=== PATIENT | female | born 1970 | race Caucasian/White ===

== ENCOUNTER 2020-08-30 07:25 | Outpatient (REF) | payer OTHER, SELFPAY ==
--- NOTE | 2020-08-30 07:29 | MM_ITS ---
EXAMINATION: MM SCREENING DIGITAL BREAST TOMOSYNTHESIS, BILATERAL CLINICAL INFORMATION: Screening. Asymptomatic. The lifetime risk of breast cancer based on the Tyrer-Cuzick Model is 10%. COMPARISON: Mammography: 08/28/2019, 08/26/2018 TECHNIQUE: Digital breast tomosynthesis is performed in both the craniocaudal and mediolateral oblique views along with computer-aided detection (CAD). Synthesized 2D images are generated from the tomosynthesis. FINDINGS: There are scattered areas of fibroglandular density (ACR BI-RADS breast composition Category b). There are no significant masses, abnormal calcifications, or other abnormalities. Parenchymal pattern is similar to prior exams. MM/MM tomosynthesis screening BI IMPRESSION: No mammographic evidence of malignancy. ASSESSMENT: BI-RADS 1: Negative RECOMMENDATION: Routine annual mammography screening. This patient's information was entered into a reminder system with a target due date for their next mammogram.
== END 2020-08-30 07:26 | disposition home or self-care (01) ==
LOC: HO.MAMMO 07:25
PROVIDERS: PCP Internal Medicine; Visit Provider Internal Medicine
DX: Z12.31 Encounter for screening mammogram for malignant neoplasm of breast (principal)
CPT/HCPCS: 77063; 77067

== ENCOUNTER 2020-10-23 07:19 | Outpatient (REF) | payer OTHER, SELFPAY ==
[2020-10-23 07:56] LABS: COVID-19 Test Negative (Negative)
== END 2020-10-23 07:20 | disposition home or self-care (01) ==
LOC: HO.EMPCOV 07:19
PROVIDERS: Visit Provider Internal Medicine
DX: Z20.822 Contact with and (suspected) exposure to COVID-19 (principal)
CPT/HCPCS: 36415; 87635; C9803

== ENCOUNTER 2020-10-25 14:43 | Outpatient (REF) | payer OTHER, SELFPAY ==
[2020-10-25 15:17] LABS: COVID-19 Test Negative (Negative)
== END 2020-10-25 14:44 | disposition home or self-care (01) ==
LOC: HO.EMPCOV 14:43
PROVIDERS: Visit Provider Internal Medicine
DX: Z20.822 Contact with and (suspected) exposure to COVID-19 (principal)
CPT/HCPCS: 36415; 87635; C9803

== ENCOUNTER → 2021-05-24 12:08 | Outpatient (BNVA) | payer OTHER, SELFPAY | DX: Z20.822 Contact with and (suspected) exposure to COVID-19 (principal); Z13.89 Encounter for screening for other disorder | CPT/HCPCS: 36415; 87635; C9803 ==

== ENCOUNTER 2021-10-27 10:38 | Outpatient (REF) | payer OTHER, SELFPAY ==
--- NOTE | ~2021-10-27 | MM_ITS ---
EXAMINATION: MM SCREENING DIGITAL BREAST TOMOSYNTHESIS, BILATERAL CLINICAL INFORMATION: Screening. Asymptomatic. The lifetime risk of breast cancer based on the Tyrer-Cuzick Model is 10%. COMPARISON: Mammography: 08/30/2020, 08/28/2019, 08/26/2018 TECHNIQUE: Digital breast tomosynthesis is performed in both the craniocaudal and mediolateral oblique views along with computer-aided detection (CAD). Synthesized 2D images are generated from the tomosynthesis. FINDINGS: There are scattered areas of fibroglandular density (ACR BI-RADS breast composition Category b). There are no significant masses, abnormal calcifications, or other abnormalities. Parenchymal pattern is similar to prior studies. There is no developing density or architectural abnormality. The axilla and skin contours are unremarkable. No significant changes. MM/MM tomosynthesis screening BI IMPRESSION: No mammographic evidence of malignancy. ASSESSMENT: BI-RADS 1: Negative RECOMMENDATION: Routine annual mammography screening. This patient's information was entered into a reminder system with a target due date for their next mammogram.
== END 2021-10-27 10:39 | disposition home or self-care (01) ==
LOC: HO.MAMMO 10:38
PROVIDERS: PCP Internal Medicine; Visit Provider Internal Medicine
DX: Z12.31 Encounter for screening mammogram for malignant neoplasm of breast (principal)
CPT/HCPCS: 77063; 77067

== ENCOUNTER 2022-07-24 11:43 | Outpatient (REF) | payer OTHER, SELFPAY ==
[2022-07-24 14:55] LABS: Syphilis Screen Nonreactive (Nonreactive)
[2022-07-25 09:51] LABS: HBsAGNum1 0.27 S/CO (0.00-0.99); HIV AB/AG Nonreactive (Nonreactive); HIV Num 1 0.04 S/CO (0.00-0.99); Hepatitis B Surface Antigen Negative (Negative); ~HepC Num1 0.07 S/CO (0.00-0.79); ~Hepatitis C Antibody Nonreactive (Nonreactive)
== END 2022-07-24 11:44 | disposition home or self-care (01) ==
LOC: HO.HMGCLDS 11:43
PROVIDERS: PCP Internal Medicine; Visit Provider Nurse Practitioner Adult Health
DX: Z11.4 Encounter for screening for human immunodeficiency virus [HIV] (principal); Z11.3 Encounter for screening for infections with a predominantly sexual mode of transmission
CPT/HCPCS: 36415; 86780; 86803; 87340; 87389

== ENCOUNTER → 2022-08-07 13:26 | Outpatient (BNVA) | payer OTHER, SELFPAY | PROVIDERS: PCP Internal Medicine; Visit Provider Physician Assistant | DX: Z13.89 Encounter for screening for other disorder (principal) | CPT/HCPCS: 99203 ==

== ENCOUNTER 2022-08-27 15:30 | Outpatient (RCR) | payer OTHER, SELFPAY ==
--- NOTE | 2022-08-09 12:15 | MHC.OT.EP ---
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 Thank you once again for your referral.
--- NOTE | 2022-10-18 11:29 | MHC.OT.DC ---
[address] [phone] F: [phone] Occupational Therapy Discharge Note Provider: Janie Herrera Diagnosis: Right lateral epicondylitis with radicular sx Date of Surgery: Date of Evaluation: 08/09/22 Date of Discharge: 10/18/22 Treatments to Date: 3 Cancellations to Date: 1 No Shows to Date: Discharge Status: Improved Function Independent with HEP Discharge Summary: Pain 3/10 Pt indep with ther ex and elbow protection techniques for self management of lateral epicondylitis Some improvement in activity tolerance with use of standing desk. Needs recommended modifications for seated work. Electronically Signed By: Vanessa Salinas OT CHT CLT Reviewed/agree with student documentation: N/A Therapist: Please Sign and return to therapist, thank you for your referral.
== END 2022-10-18 11:30 | disposition home or self-care (01) ==
LOC: HO.OT 15:30
PROVIDERS: PCP Internal Medicine; Visit Provider Physician Assistant
DX: M77.11 Lateral epicondylitis, right elbow (principal)
CPT/HCPCS: 97033; 97110; 97140; 97166

== ENCOUNTER → 2022-08-28 15:10 | Outpatient (BNVA) | payer OTHER, SELFPAY | PROVIDERS: PCP Internal Medicine; Visit Provider Physician Assistant | DX: Z13.89 Encounter for screening for other disorder (principal) | CPT/HCPCS: 73080; 99215 ==

== ENCOUNTER 2022-10-03 08:37 | Outpatient (REF) | payer OTHER, SELFPAY ==
--- NOTE | 2022-10-03 08:45 | EMG_ITS ---
FINDINGS: Right median and ulnar motor and sensory studies were performed. Right medial and lateral antecubital brachial sensory studies were performed. Right radial sensory study was performed and needle examination was performed on paraspinal and multiple arm muscles. IMPRESSION: This study was unremarkable and did not reveal any sign of ulnar neuropathy or entrapment neuropathy in the hand or arm, plexopathy, or radiculopathy. MD MERLIN Chauhan/GIAN / [id number]
== END 2022-10-03 08:38 | disposition home or self-care (01) ==
LOC: HO.NEURO 08:37
PROVIDERS: PCP Internal Medicine; Visit Provider Physician Assistant
DX: M54.10 Radiculopathy, site unspecified (principal); M62.81 Muscle weakness (generalized)
CPT/HCPCS: 95886; 95910; 99202

== ENCOUNTER → 2022-10-10 14:23 | Outpatient (BNVA) | payer OTHER, SELFPAY | PROVIDERS: PCP Internal Medicine; Visit Provider Physician Assistant | DX: M77.11 Lateral epicondylitis, right elbow (principal) | CPT/HCPCS: 20551; J1020; J1040 ==

== ENCOUNTER → 2022-10-16 11:57 | Outpatient (BNVA) | payer OTHER, SELFPAY | PROVIDERS: PCP Internal Medicine; Visit Provider Physician Assistant | DX: Z13.89 Encounter for screening for other disorder (principal) | CPT/HCPCS: 99213 ==

== ENCOUNTER 2022-11-16 07:34 | Outpatient (REF) | payer OTHER, SELFPAY ==
--- NOTE | ~2022-11-16 | MM_ITS ---
EXAMINATION: MM SCREENING DIGITAL BREAST TOMOSYNTHESIS, BILATERAL CLINICAL INFORMATION: Screening. Asymptomatic. The lifetime risk of breast cancer based on the Tyrer-Cuzick Model is 9.5%. COMPARISON: Mammography: October 27, 2021 and studies dating back to May 20, 2016 TECHNIQUE: Digital breast tomosynthesis is performed in both the craniocaudal and mediolateral oblique views along with computer-aided detection (CAD). Synthesized 2D images are generated from the tomosynthesis. FINDINGS: The breasts are heterogeneously dense, which may obscure small masses (ACR BI-RADS breast composition Category c). There are no significant masses, abnormal calcifications, or other abnormalities. MM/MM tomosynthesis screening BI IMPRESSION: No significant changes from prior exam. ASSESSMENT: BI-RADS 1: Negative RECOMMENDATION: Routine annual mammography screening. This patient's information was entered into a reminder system with a target due date for their next mammogram.
== END 2022-11-16 07:35 | disposition home or self-care (01) ==
LOC: HO.MAMMO 07:34
PROVIDERS: PCP Internal Medicine; Visit Provider Internal Medicine
DX: Z12.31 Encounter for screening mammogram for malignant neoplasm of breast (principal)
CPT/HCPCS: 77063; 77067

== ENCOUNTER 2023-12-16 09:06 | Outpatient (REF) | payer OTHER, SELFPAY ==
[2023-12-16 12:16] LABS: HBsAGNum1 0.32 S/CO (0.00-0.99); HIV AB/AG Nonreactive (Nonreactive); HIV Num 1 0.05 S/CO (0.00-0.99); Hepatitis B Surface Antigen Negative (Negative)
[2023-12-16 12:18] LABS: Syphilis Screen Nonreactive (Nonreactive)
[2023-12-17 15:43] LABS: Follicle Stimulating Hormone 84.2 mIU/mL
[2023-12-23 11:58] LABS: C. trachomatis RNA TMA NOT DETECTED (NOT DETECTED); N. gonorrhoeae RNA TMA NOT DETECTED (NOT DETECTED)
[2023-12-23 22:08] LABS: HPV mRNA E6/E7 Detected (Not Detected)
== END 2023-12-16 09:07 | disposition home or self-care (01) ==
LOC: HO.HMGCLDS 09:06
PROVIDERS: PCP Internal Medicine; Visit Provider Nurse Practitioner Adult Health
DX: Z12.4 Encounter for screening for malignant neoplasm of cervix (principal); Z11.51 Encounter for screening for human papillomavirus (HPV); Z11.4 Encounter for screening for human immunodeficiency virus [HIV]; N91.2 Amenorrhea, unspecified; Z20.2 Contact with and (suspected) exposure to infections with a predominantly sexual mode of transmission
CPT/HCPCS: 36415; 83001; 86780; 87340; 87389; 87491; 87591; 87624; 88142

== ENCOUNTER 2024-01-24 08:19 | Outpatient (REF) | payer OTHER, SELFPAY | END 2024-01-24 08:20 | disposition home or self-care (01) | LOC: HO.MAMMO 08:19 | PROVIDERS: PCP Internal Medicine; Visit Provider Internal Medicine | DX: Z12.31 Encounter for screening mammogram for malignant neoplasm of breast (principal) | CPT/HCPCS: 77063; 77067 ==

== ENCOUNTER → 2024-01-24 08:30 | Outpatient (BNV) | payer OTHER, SELFPAY | PROVIDERS: PCP Internal Medicine; Visit Provider Radiology Diagnostic Radiology | DX: Z12.31 Encounter for screening mammogram for malignant neoplasm of breast (principal) | CPT/HCPCS: 77063; 77067 ==

== ENCOUNTER 2024-03-05 08:01 | Outpatient (AMB) | payer OTHER, SELFPAY ==
[2024-03-05 08:04] VITALS: BP 122/76; PULSE 76; TEMP 37.1; O2SAT 98
--- NOTE | 2024-03-05 08:04 | AM.OFFWIN_ITS ---
Intake Vital Signs 3 03/05/24 08:04 Height 5 ft 4 in BP 122/76 Blood Pressure Location Rt brachial Position Sitting Pulse 76 Pulse Source Pulse Oximeter Temp 98.8 F Temp Source Temporal Artery Scan Pulse Oximetry (%) 98 Intake Visit Reasons: EP Back strain/pain Intake Note: pt is here for back strain with pain Patient Tobacco Use Status: Never used Tobacco Allergies No Known Allergies Allergy (Verified 03/05/24 08:05) Medication List - Last Reconciled 03/05/24 by Marisol Howard MD levonorgestrel (Liletta) intrauterine Do you need a note to return to daycare/school/sports/work: Yes HPI EP Back strain/pain 2 HPI0 Details Patient is a 53-year-old female came in today to be evaluated for lower back pain Which started yesterday. Patient says that prior to that she has been lifting heavy boxes as she is helping her bothered move On examination her pain is located around right sacroiliac joint She is also having spasms of back muscles with movement I am treating her with diclofenac 75 mg up to b.i.d. with food And cyclobenzaprine 10 mg up to 3 times a day Patient is aware that cyclobenzaprine is going to make her very tired It is preferable that she take it at night. Follow-up with PCP [facility] Medical History Elevated LDL cholesterol level Social History Housing: Condominium Patient Tobacco Use Status: Never used Tobacco e-Cigarette/Vaping Use: Never Used service: No Current occupational status: employed Cognitive needs: No Hearing needs: No Vision needs: Yes Review of Systems Const All systems reviewed & are unremarkable except as noted in HPI and below Physical Exam Vital Signs: Last Vital Signs Temp 98.8 F 03/05/24 08:04 Pulse 76 03/05/24 08:04 BP 122/76 03/05/24 08:04 Pulse Ox 98 03/05/24 08:04 Const General: no acute distress Orientation/consciousness: patient oriented x3 Eyes General: appearance normal, both eyes and all related structures Resp Effort & Inspection: normal respiratory effort and able to speak in complete sentences Back/Spine/Pelvis Back/spine/pelvis image: 2 1. Site of pain, no pain with spine percussion, straight leg negative bilateral Motor sensory intact Neuro General: patient oriented x3 Psych Mental Status: mental status grossly normal Assessment & Plan Assessment & Plan (1) Sacroiliac joint pain: Code(s): M53.3 - Sacrococcygeal disorders, not elsewhere classified Plan Patient is a 53-year-old female came in today to be evaluated for lower back pain Which started yesterday. Patient says that prior to that she has been lifting heavy boxes as she is helping her bothered move On examination her pain is located around right sacroiliac joint She is also having spasms of back muscles with movement I am treating her with diclofenac 75 mg up to b.i.d. with food And cyclobenzaprine 10 mg up to 3 times a day Patient is aware that cyclobenzaprine is going to make her very tired It is preferable that she take it at night. Follow-up with PCP Medications: New 2 cyclobenzaprine 10 mg PO TID 21 tabs 0RF 7 days diclofenac sodium 75 mg PO BID 20 tabs 0RF pain 10 days Coding Level of Care Code Est Pt Level 3 (65441) Diagnoses Sacroiliac joint pain M53.3
== END 2024-03-05 09:05 | disposition home or self-care (01) ==
PROVIDERS: PCP Internal Medicine; Visit Provider Internal Medicine
DX: M53.3 Sacrococcygeal disorders, not elsewhere classified (principal)
CPT/HCPCS: 99213

== ENCOUNTER 2024-09-30 10:03 | Outpatient (AMB) | payer OTHER, SELFPAY ==
--- NOTE | 2024-09-30 10:21 | AM.OFFWIN_ITS ---
Intake Vital Signs 09/30/24 10:23 Weight 160 lb BP 122/80 Blood Pressure Location Lt brachial Position Sitting Pulse 63 Pulse Source Pulse Oximeter Temp 98.2 F Temp Source Oral Pulse Oximetry (%) 99 Oxygen Delivery Method Room Air Intake Visit Reasons: EP-rt ear infection Intake Note: Patient here for right ear pain that has been present for about 5 days. Patient Tobacco Use Status: Never used Tobacco Allergies No Known Allergies Allergy (Verified 09/30/24 10:23) Do you need a note to return to daycare/school/sports/work: No HPI HPI Comments History of Present Illness Details History The patient is a 54-year-old female presenting with complaints pertaining to her right ear. The issue began following a recent trip to [place], where she believes she developed an ear infection. The symptomatology presented atypically, as she did not have a preceding upper respiratory tract infection, which is typically associated with her past occurrences of ear infections. She has experienced a sensation of fluid accumulation and a blockage in the right ear, though she reports no changes in hearing acuity beyond this sensation. The patient denies any fever or systemic symptoms. Previous attempts to visit a walk-in clinic in [place] were impeded due to insurance verification issues, and thus she abstained from treatment. Symptomatic management attempted included the use of topical analgesic ear drops, which were ineffective, leading her to abstain from their continued use. She denies any history of diabetes or pain on the bone behind her ear. The patient returned from her trip the previous night and sought immediate evaluation for her continued symptoms. Physical Exam General: Cooperative, healthy appearing, comfortable and no acute distress Orientation/consciousness: Patient oriented x3 Limitations: No limitations Head: Normal to inspection Ears: Normal external ears bilaterally. Right TM purulent effusion and erythema. Left TM has cerumen blocking it. Nose: Normal external nose present, Normal nares present and No nasal discharge present Face and sinus: Normal facial exam and Yes sinuses nontender Mouth: Normal oral and palatal mucosa present and moist mucous membranes Throat: Yes tonsils normal, Yes uvula midline. Posterior oropharynx erythema Eyes: Appearance normal, both eyes and all related structures Neck: Normal visual inspection Respiratory: Normal respiratory effort, able to speak in complete sentences Skin: No rashes or lesions noted Neuro: Patient oriented x3 Extremities: Normal to inspection and Yes no clubbing, cyanosis or edema [facility] Medical History Elevated LDL cholesterol level Social History Housing: Condominium Patient Tobacco Use Status: Never used Tobacco e-Cigarette/Vaping Use: Never Used service: No Current occupational status: employed Cognitive needs: No Hearing needs: No Vision needs: Yes Review of Systems Const All systems reviewed & are unremarkable except as noted in HPI and below Physical Exam Vital Signs: Last Vital Signs Temp 98.2 F 09/30/24 10:23 Pulse 63 09/30/24 10:23 BP 122/80 09/30/24 10:23 Pulse Ox 99 09/30/24 10:23 Oxygen Delivery Method Room Air 09/30/24 10:23 Assessment & Plan Assessment & Plan (1) Otitis media: Code(s): H66.90 - Otitis media, unspecified, unspecified ear Qualifiers: Otitis media type: suppurative Chronicity: acute Laterality: right Recurrence: non-recurrent Spontaneous tympanic membrane rupture: without spontaneous rupture Qualified Code(s): H66.001 - Acute suppurative otitis media without spontaneous rupture of ear drum, right ear Plan: - Initiate amoxicillin therapy for the treatment of right acute otitis media, prescribed to be taken every 12 hours for 7 days. The patient is instructed that if symptoms significantly improve, she may discontinue after 5 days. - Prescription sent electronically to the patient's pharmacy of choice, [facility]. - Educate the patient about the importance of completing a course of antibiotics and monitoring for any adverse reactions or persistence of symptoms. - Advised the patient to seek further medical evaluation if symptoms do not improve with initial therapy or worsen. Patient was informed and verbally consented to the use of an ambient scribe for clinic note documentation during this visit Medications: New amoxicillin 875 mg PO Q12H 14 tabs 0RF Coding Level of Care Code Est Pt Level 3 (13170) Diagnoses Non-recurrent acute suppurative otitis media of right ear without spontaneous rupture of tympanic membrane H66.001 Otitis media type: suppurative Chronicity: acute Laterality: right Recurrence: non-recurrent Spontaneous tympanic membrane rupture: without spontaneous rupture
[2024-09-30 10:23] VITALS: BP 122/80; PULSE 63; TEMP 36.8; O2SAT 99
== END 2024-09-30 10:44 | disposition home or self-care (01) ==
PROVIDERS: PCP Internal Medicine; Visit Provider Physician Assistant
DX: H66.001 Acute suppurative otitis media without spontaneous rupture of ear drum, right ear (principal)

== ENCOUNTER → 2024-09-30 10:03 | Outpatient (BNVA) | payer OTHER, SELFPAY | PROVIDERS: PCP Internal Medicine; Visit Provider Physician Assistant ==

== ENCOUNTER 2024-11-25 08:32 | Outpatient (AMB) | payer OTHER, SELFPAY ==
--- OUTSIDE RECORDS SUMMARY | 2024-11-25 08:37 | XMS_ITS | Patient Health Record ---
[facility] Address [address] [place] [address] Care Team Providers Care Roller Checker Name Role Phone Mini PARIS, Sarah Wiley Primary Care Provider Un available BlackBeth Unavailable [phone] Allergies No Known Allergies Reason For Referral No Information Medications Medication SIG (Take, Route, Frequency, Duration) Notes Start Date End Date Status Amy Active Social History Tobacco Use: Social History Observation Description Date Details (start date - stop date) Never Smoker NA - NA Tobacco use other than smoking: Question Answer Notes Are you an other tobacco user? No Tobacco Control (Standard) Question Answer Notes Tobacco use: Nonsmoker Additional Findings: Tobacco non-user Current no nsmoker AUDIT-C (Standard) Question Answer Notes Did you have a drink contain ing alcohol in the past year? Yes How often did you have six o r more drinks on one occasion in the past year? Declined to specify (0 point) How many drinks did you have on a typical day when you were drinking in the past year? Declined to specify (0 point) How often did you have a dri nk containing alcohol in the past year? Declined to specify (0 point) Points 0 Interpretation Negative Problems Problem Type SNOMED Code ICD Code Onset Dates Problem Status W/U Status Risk Notes Problem Acquired hammer toe of right foot (9416437619612490 ) Other hammer toe(s) (acquired), right foot (M20.41) Active confirmed Problem Acquired hammer toe of left foot (0309489366847782 ) Other hammer toe(s) (acquired), left foot (M20.42) Active confirmed Problem Acquired right hallux valgus (845149584074177) Hallux valgus of right foot (M20.11) Active confirmed Problem Acquired left hallux valgus (374625105231659) Hallux valgus of left foot (M20.12) Active confirmed Problem Acquired hallux valgus (62227974) Acquired hallux interphalangeus of left foot (M20.12) Active confirmed Problem Acquired hallux valgus (63490191) 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) Active confirmed Problem Localized, primary osteoarthritis of the ankle and/or foot (795658614) Arthritis of joint of lesser toe, left (M19.072) Active confirmed Problem Localized, primary osteoarthritis of the ankle and/or foot (366621289) Arthritis of joint of lesser toe, right (M19.071) Active confirmed Vital Signs Blood pressure diastolic 70 mm Hg 11/04/2024 Height 5ft5in in 11/04/2024 Blood pressure systolic 120 mm Hg 11/04/2024 Weight 165 lbs 11/04/2024 BMI 27.45 kg/m2 11/04/2024 Encounters Encounter Location Date Provider [facility] [address] 11/04/2024 Bethmansoor Batista Pain in right toe(s) M79.674 ; Acquired hallux interphalangeus of right foot M20.11 ; Other hammer toe(s) (acquired), right foot M20.41 ; Pain in left toe(s) M79.675 ; Other hammer toe(s) (acquired), left foot M20.42 ; Acquired hallux interphalangeus of left foot M20.12 ; Keratosis L57.0 ; Bunion of left foot M21.612 and Bunion, right M21.[address] [facility] [address] 11/04/2024 Beth Batista Assessments Encounter Date Diagnosis (ICD Code) Assessment Notes Treatment Notes Treatment Clinical Notes Section Notes 11/04/2024 Pain in right toe(s) (ICD-10 - M79.674) 11/04/2024 Acquired hallux interphalangeus of right foot (ICD-10 - M20.11) 11/04/2024 Other hammer toe(s) (acquired), right foot (ICD-10 - M20.41) 11/04/2024 Pain in left toe(s) (ICD-10 - M79.675) 11/04/2024 Other hammer toe(s) (acquired), left foot (ICD-10 - M20.42) 11/04/2024 Acquired hallux interphalangeus of left foot (ICD-10 - M20.12) 11/04/2024 Keratosis (ICD-10 - L57.0) 11/04/2024 Bunion of left foot (ICD-10 - M21.612) 11/04/2024 Bunion, right (ICD-10 - M21.611) Plan Of Treatment No Information Insurance Providers Payer Name Payer Address Payer Phone Subscriber Number Group Number Insured Name Patient Relationship to Insured Coverage Start Date Coverage End Date [employer] Benefits [address] [address] [place] [id number] Hilaria Sherwood Self - patient is the insured Medical (General) History Medical History History ICD Code Back pain Knee Pain covid-19 Headaches/Migraines Chicken pox Surgical History Surgery Date(Month/Year) Meniscus repair 2x 1996, 2016
--- OUTSIDE RECORDS SUMMARY | 2024-11-25 08:38 | XMS_ITS ---
Author Organization [facility] Address [address] [place] [address] Care Team Providers Care Disk And Tape Machine Tender Name Role Phone Mini PARIS, Sarah Wiley Primary Care Provider Un available BlackLuisitoBeth Unavailable [phone] Allergies No Known Allergies REASON FOR VISIT Pcp-2021, Painful Toe(s) Medications Medication SIG (Take, Route, Frequency, Duration) Notes Start Date End Date Status Brendaetta Active Social History Tobacco Use: Social History [...] Problem Acquired hammer toe of right foot (6407655832778820 ) Other hammer toe(s) (acquired), right foot (M20.41) Active confirmed Problem Localized, primary osteoarthritis of the ankle and/or foot (817740578) Arthritis of joint of lesser toe, right (M19.071) Active confirmed Problem Acquired hammer toe of left foot (2366689320189104 ) Other hammer toe(s) (acquired), left foot (M20.42) Active confirmed Problem Localized, primary osteoarthritis of the ankle and/or foot (291862686) Arthritis of joint of lesser toe, left (M19.072) Active confirmed Problem Acquired right hallux valgus (520169602075833) Hallux valgus of right foot (M20.11) Active confirmed Problem Acquired left hallux valgus (817218114516273) Hallux valgus of left foot (M20.12) Active confirmed Problem Acquired hallux valgus (87275072) Acquired hallux interphalangeus of left foot (M20.12) Active confirmed Problem Acquired hallux valgus (08138996) 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) Active confirmed Vital Signs Height 5ft5in in 11/04/2024 Weight 165 lbs 11/04/2024 BMI 27.45 kg/m2 11/04/2024 Blood pressure systolic 120 mm Hg 11/04/19 25 Blood pressure diastolic 70 mm Hg 025 Encounters Encounter Location Date Provider Diagnosis [facility] [address] [address] 11/04/2024 Beth Black Pain in right toe(s) M79.674 ; Acquired hallux interphalangeus of right foot M20.11 ; Other hammer toe(s) (acquired), right foot M20.41 ; Pain in left toe(s) M79.675 ; Other hammer toe(s) (acquired), left foot M20.42 ; Acquired hallux interphalangeus of left foot M20.12 ; Keratosis L57.0 ; Bunion of left foot M21.612 and Bunion, right M21.611 Assessments Encounter Date Diagnosis (ICD Code) Assessment [...] right (ICD-10 - M21.611) Plan Of Treatment Next Appt Details Follow Up: prn, Reason: Progress Notes * ALICIALuisitomy LDOB:1970 (54 yo F)Acc No.[id number]:11/04/2024 Progress Notes Patient:?Hilaria SHERWOOD Provider:?Beth Batista DPM :1970???Age:54 Y???Sex:Female D ate:11/04/2024 Address:[address] [place], [place] [id number] Pcp:Qing Muñoz Subjective: * Chief Complaints: * ???Pcp-ainful Toe(s) * HPI: ???Toe pain:?Nature:?tenderness.?Location:?, Great toe, B/L feet.?Duration:?, several years.?Course:?worse.?Aggravated by:?shoes, any pressure.?Treatments:?rest/alter normal daily activity, change in shoes.? * ROS:?General/Constitutional:?Nausea?denies.?Vomiting?denies.?Hunger Thirst?denies.?Loss appetite?denies.?Chills?denies.?Fatigue?denies.?Fever?denies.?Night Sweats?denies.?Unexplained weight loss?denies.?Unexplained weight gain?denies.?HEENTM:?Dentures?denies.?Dizziness?denies.?Glasses/contacts?admits.?Retinopathy?de nies.?Blurred/double vision?denies.?TMJ?denies.?Discharge/drainage?denies.?Implants?denies.?Sore throat?denies.?Dental implants?denies.?Hard of hearing ?denies.?Difficulty chewing/swallowing/speaking?denies.?Nose bleeds?denies.?Sore mouth?denies.?Respiratory:?On Oxygen?denies.?Pneumonia/pleurisy?denies.?Bronchitis?denies.?Emphysema?denies.?C oughing?denies.?Cough blood?denies.?Shortness of breath?denies.?Wheezing?denies.?Cardiovascular:?Pacemaker?denies.?MVP?denies.?WPW?denies.?CHF?denies.?Heart attack?denies.?Septal defect?denies.?Rapid beat?denies.?Chest pain ?denies.?Atrial Fib.?denies.?Murmur/Palpitations?denies.?Gastrointestinal:?Hemorrhoids?denies.?Stomach/Abdominal pain?denies.?Dark blood stool?denies.?Irritable bowel ?denies.?Constipation?denies.?Diarrhea?denies.?Hematology:?Swelling?denies.?Clots?denies.?Varicose Veins?denies.?Bruising?denies.?Bleeding problem?denies.?Genitourinary:?Blood urine?denies.?Frequent/Painfu/urination/bladder control?denies.?Kidney stones?denies.?Infection (UTI)?denies.?Nephropathy?denies.?sex trans dis (STD)?denies.?Prostate?denies.?Musculoskeletal:?Hammertoes?denies.?Bunions?denies.?Back Pain?denies.?Muscle Cramps/ Resting?denies.?Muscle cramps / walking?denies.?Generalized aches and pains?denies.?Weakness?denies.?Integ.:?Correa?denies.?Scars?denies.?Corns/calluses?admits.?Ingrown nails?denies.?Painful nails?denies.?Open Sores?denies.?Rashes?denies.?Neurologic:?Difficulty sleeping?denies.?Brain disorder?denies.?Numbness?denies.?Balance trouble?denies.?Confusion?denies.?Fainting/blackouts?denies.?Tingling?denies.?Tr emors?denies.? * Medical History:? * Surgical History:?Meniscus r epair 2x 1996, 2017 * Hospitalization/Major Diagno stic Procedure:?Denies Past Hospitalization * Family History:?Mother: dece ased, diagnosed with Unspecified essential hypertension, Unspecified heart disease.?Father: alive, diagnosed with Unspecified heart disease.?Maternal Grand Father: diagnosed with Diabetic - NIDDM.?Paternal aunt: diagnosed with Other malignant neoplasm of unspecified site, Diabetic - NIDDM, Family history of arthritis.?Paternal uncle: diagnosed with Diabetic - NIDDM, Family history of arthritis.? * Social History:?Tobacco Use:?Tobacco use other than smoking?Are you an other tobacco user??No ?Tobacco Control (Standard)?Tobacco use:?Nonsmoker ?Additional Findings: Tobacco non-user?Current nonsmoker ???Drugs/Alcohol:?Drugs?Have you used drugs other than those for medical reasons in the past 12 months??Yes ?Marijuana??Yes Edibles occasionally ???Miscellaneous:?Caffeine: yes, frequency:. ?Children: yes, 2. ?Exercise: no. ?Marital status: Single. 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 ???Drug/Alcohol:?AUDIT-C (Standard)?Did you have a drink containing alcohol in the past year??Yes ?How often did you have six or more drinks on one occasion in the past year??Declined to specify (0 point) ?How many drinks did you have on a typical day when you were drinking in the past year??Declined to specify (0 point) ?How often did you have a drink containing alcohol in the past year??Declined to specify (0 point) ?Points?0 ?Interpretation?Negative * Medications:?TakingLiletta M edication List reviewed and reconciled with the patientTaking Amy Medication List reviewed and reconciled with the patient * Allergies:?N.K.D.A.yes[Daksha woods Verified] Objective: * Vitals:?Ht: 5ft5in, Wt:165, BMI:27.45, Shoe size: 8-8.5, BP:120/70mm Hg, Ht-cm: 165.1 cm, Wt-k.84 kg. * Examination: ???General Examination: ?GENERAL APPEARANCE:?Reveals a pleasant, alert, well nourished, well- developed, well hydrated individual, who demonstrates proper attention to hygiene/body habitus, and is in no acute distress, Pt serves as own historian for office visit today.?ORIENTED:?person, place, and time.?Orthopedic: ?MUSCLE STRENGTH:?5/5 all groups in a symmetrical fashion, B/L.?BUNION:?Medially prominent 1st MPJ, B/L, ( + ) Hallux Interphalangeus, (+) Pain on palpation, inflammation present, erythema at exostosis IPJ b/l R>L.?DIGITAL DEFORMITIES:?Digital contracture, PIPJ, 2-5 B/L, incompl-reducible with WB, or to push-up test, no over, nor underlapping.?MPJ PATHOLOGY:?Plantarflexed MT/MPJ, 5th, B/L, No MPJ pain with ROM.?FOOTWEAR:? shoe gear properties exacerbate patients foot/toe deformity.?Vascular: ?DP PULSES (B):?3/4, B/L.?PT PULSES (B):?3/4, B/L.?CAPILLARY FILL TIME:?immediate, all digits, B/L.?TROPHIC CONDITION-TEXTURE/ELASTICITY/TURGOR/HAIR GROWTH (B):?normal, B/L.?TEMPERTURE GRADIENT (C):?normal, warm to cool, proximal to distal, B/L, B/L.?PIGMENTATION:?normal, B/L.?EDEMA (C):?absent, B/L.?Neurological: ?SENSORY:?Neurological exam reveals intact sensorium, pain sensation normal, vibration sensation intact, pinprick sensation is normal in the lower extremities, Pt denies, anesthesia, burning, paresthesia, tingling, B/L.?Dermatologic: ?SKIN FINDINGS:?Skin exam reveals normal color, texture, elasticity, and turgor. There are no masses, nor excrescences. The interspaces are clear, B/L, Skin exam reveals Keratotic lesion(s) located at, IPJ, Medial plantar, TA, , T5, SUB MTH (s), 5, 2, B/L.?X-Rays - IMAGING REPORT: ?Views:? X-Rays deferred at this time due to machine is down.? * Physical Examination:?L2999 Supplies:?Insoles-pedag?#39.? Assessment: * Assessment: 1.?Pain in right toe(s) - M7 9.674???2.?Acquired hallux interphalangeus of right foot - M20.11 (Primary)???3.?Other hammer toe(s) (acquired), right foot - M20.41???4.?Pain in left toe(s) - M79.675???5.?Other hammer toe(s) (acquired), left foot - M20.42???6.?Acquired hallux interphalangeus of left foot - M20.12???7.?Keratosis - L57.0???8.?Bunion of left foot - M21.612???9.?Bunion, right - M21.611??? Plan: * Treatment: * Procedure Codes:? * Preventive Medicine:? ??Counseling:?Discussion:?-03: Office or other outpatient visit for the evaluation and management of a new patient, which required a medically appropriate history and/or examination and LOW level of DECISION MAKING for: 1 STABLE ACUTE UNCOMPLICATED PROBLEM, 2 OR MORE MINOR PROBLEMS, OR 1 STABLE CHRONIC PROBLEM, THAT POSE(S) A LOW RISK FOR MORBIDITY/MORTALITY. The visit on the day of the encounter encompassed interpreting the data and educating the patient as to the nature of their condition, treatment options available according to their individual PMH, meds, allergies, and overall health/living conditions, as well as any potential risks or complications that may occur from a failure to adhere to, and participate in, the recommended course of therapy. The discussion included a complete verbal, and/or written explanation of the examination results, any x-rays taken, the proposed diagnosis, and outline of the treatment plan. A schedule for future care needs was also explained. The patient verbalized an understanding of the instructions at this time and agreed to be an active participant in their treatment. If the patient should think of any questions or concerns after the visit, I have encouraged the patient to call the office.?BioMech.:?I discussed the Pts foot biomechanics with them and how it relates to their problem.?Orthotics:?I explained to the patient the benefits of OT use. I explained that orthoses are medically necessary to decrease the foot pain through proper mechanical control, support of their foot, decrease pain associated with the plantar lesion, the delay of the formation of bunion, the delay of the formation of hammertoes, Prefabricated orthoses ( __ Pedag (39# ), were dispensed. The inserts were comfortably fit to the patients feet in both weight-bearing and non-weight bearing attitudes. The patient was instructed to increase the amount of time they were wearing the inserts, starting with one hour the first day and gradually increasing the amount of time worn until they are using them manager maritime and in all activities. They were asked to call the office if any signs of irritation were noted such as redness, blistering or callous formation. Instuctions were given for their usage and proper break-in/wear/care. Pt expressed comfort with and tolerance to inserts dispensed.?Podiatric Surgery Counseling:?Surgical procedures to treat the patients foot problem were discussed. We reviewed the risks of the procedure (described below) vs not having the procedure (persistent pain, deformity, risk for skin ulceration/infection, loss of toe). We discussed the potential procedure complications including, but not limited to: pain, swelling, bleeding, scarring, numbness, infection, delayed/non healing, floppy/unstable/shorthened toe, recurrence, failure of the procedure, overcorrection leading to plantarflexed/downward positioned toe, recurrence, need for further surgery, as well as the possibility for loss of the toe itself. We discussed the use of IV/Local anesthesia, and the usual post-op course for healing. No guarentees were given. The patient verbally indicated a full understanding of the above conversation, and any other of their questions were answered to their satisfaction, Pt deferred any surgery at the present time.? * Follow Up:?prn * Images: * Sign off status: Completed true * Provider:?Beth Batista DPM Date:?2024 Generated for Vick freire/Brad/Miki on:?11/25/2024 08:37 AM EST History and Physical Notes * HPI (History of Present Illness) Category Sub-Category Detail Notes Category Not es Toe pain Nature: tenderness Location: , Great toe, B/L fee t Duration: , several years Course: worse Aggravated by: shoes, any pressure Treatments: rest/alter normal da smitha activity, change in shoes Physical Examination Category Sub-Category Detail Notes Section Note s L2999 Supplies Insoles-pedag #39 Examination Category Sub-Category Detail Notes Category Not es Neurological SENSORY: Neurological exa m reveals intact sensorium, pain sensation normal, vibration sensation intact, pinprick sensation is normal in the lower extremities, Pt denies, anesthesia, burning, paresthesia, tingling, B/L Dermatologic SKIN FINDINGS: Skin exam reveal s normal color, texture, elasticity, and turgor. There are no masses, nor excrescences. The interspaces are clear, B/L, Skin exam reveals Keratotic lesion(s) located at, IPJ, Medial plantar, TA, , T5, SUB MTH (s), 5, 2, B/L Orthopedic BUNION: Medially promine nt 1st MPJ, B/L, ( + ) Hallux Interphalangeus, (+) Pain on palpation, inflammation present, erythema at exostosis IPJ b/l R>L FOOTWEAR: shoe gear properties exacerbate patients foot/toe deformity DIGITAL DEFORMITIES: Digital contracture , PIPJ, 2-5 B/L, incompl-reducible with WB, or to push-up test, no over, nor underlapping MPJ PATHOLOGY: Plantarflexed MT/MPJ , 5th, B/L, No MPJ pain with ROM MUSCLE STRENGTH: 5/5 all groups in a symmetrical fashion, B/L General Examination GENERAL APPEARANCE: Reveals a pleasant, alert, well nourished, well-developed, well hydrated individual, who demonstrates proper attention to hygiene/body habitus, and is in no acute distress, Pt serves as own historian for office visit today ORIENTED: person, place, and t tray Vascular DP PULSES (B): 3/4, B/L PT PULSES (B): 3/4, B/L CAPILLARY FILL TIME: immediate, all digi ts, B/L TEMPERTURE GRADIENT (C): normal, warm to cool, proximal to distal, B/L, B/L TROPHIC CONDITION-TEXTURE/ELASTICITY/TURGOR/HAIR GROWTH (B): normal, B/L EDEMA (C): absent, B/L PIGMENTATION: normal, B/L X-Rays - IMAGING REPORT Views: X-Rays d eferred at this time due to machine is down
--- OUTSIDE RECORDS SUMMARY | 2024-11-25 08:38 | XMS_ITS ---
Author Organization [facility] Address [address] [place] [address] Care Team Providers Care Physician Assistant Surgery Name Role Phone Mini PARIS, Sarah Wiley Primary Care Provider Un available Black, Beth Unavailable [phone] REASON FOR VISIT Purchased Pedag Ot Encounters Encounter Location Date Provider Diagnosis [facility] [address] [place] [address] 11/04/2024 Beth Black Plan Of Treatment No Information Progress Notes * Hilaria SHERWOOD LDOB:1970 (54 yo F)Acc No.[id number]:11/04/2024 Patient:?Hilaria SHERWOOD :1970???Age:54 Y???Sex:Female Address:[address] [place] [id number] * true * Date:? Generated for Lyrici tani/Brad/eTransmitting on:?11/25/2024 08:38 AM EST
--- NOTE | 2024-11-25 09:14 | AM.OFFWIN_ITS ---
Intake Vital Signs 11/25/24 09:16 Weight 168 lb BP 120/74 Blood Pressure Location Rt brachial Position Sitting Pulse 67 Pulse Source Pulse Oximeter Pulse Oximetry (%) 98 Oxygen Delivery Method Room Air Intake Visit Reasons: EP Ear pain, bleeding?? Intake Note: Patient here for right ear blocked that has been going on for about 2 weeks. Patient Tobacco Use Status: Never used Tobacco Allergies No Known Allergies Allergy (Verified 11/25/24 09:17) Do you need a note to return to daycare/school/sports/work: No HPI HPI Comments History of Present Illness Details 54 y/o female patient who presents to [facility] walk [facility] clinic with c/o right ear pain and feeling blocked for 2 weeks now. [facility] Medical History (Updated 11/25/24 @ 09:43 by Christy Shannon NP) Impacted cerumen of both ears Elevated LDL cholesterol level Social History [facility] Patient Tobacco Use Status: Never used Tobacco e-Cigarette/Vaping Use: Never Used service: No Current occupational status: employed Cognitive needs: No Hearing needs: No Vision needs: Yes Review of Systems Const All systems reviewed & are unremarkable except as noted in HPI and below Physical Exam Vital Signs: Last Vital Signs Pulse 67 11/25/24 09:16 BP 120/74 11/25/24 09:16 Pulse Ox 98 11/25/24 09:16 Oxygen Delivery Method Room Air 11/25/24 09:16 Const General: cooperative and no acute distress Orientation/consciousness: patient oriented x3 HEENT Head: Yes normocephalic Ears: external ears normal and TM abnormal obstructed by cerumen bilateral Face and sinus: Yes sinuses nontender Mouth: moist mucous membranes Throat: Yes uvula midline Neuro General: patient oriented x3, gait normal and moves all extremities Office Procedures Cerumen Removal From which ear canal was the cerumen removed: bilateral Removal: irrigation Notes: patient tolerated procedure well 93993-Man Irrigation/Lavage Assessment & Plan Assessment & Plan (1) Impacted cerumen of both ears: Code(s): H61.23 - Impacted cerumen, bilateral Plan: B/L ear Lavage. Pt Tolerated procedure well Cerumen cleared out. TM normal, intact. Coding Level of Care Code Est Pt Level 4 (70132) Diagnoses Impacted cerumen of both ears H61.23 CPT Codes Office Procedure - CPT: 74360-Meg Irrigation/Lavage ([id number]) Time Spent (min) 20
[2024-11-25 09:16] VITALS: BP 120/74; PULSE 67; O2SAT 98
== END 2024-11-25 10:12 | disposition home or self-care (01) ==
PROVIDERS: PCP Internal Medicine; Visit Provider Nurse Practitioner Family
DX: H61.23 Impacted cerumen, bilateral (principal)

== ENCOUNTER → 2024-11-25 08:32 | Outpatient (BNVA) | payer OTHER, SELFPAY | PROVIDERS: PCP Internal Medicine | DX: H61.23 Impacted cerumen, bilateral (principal) | CPT/HCPCS: 69209 ==

== ENCOUNTER 2025-01-07 08:04 | Outpatient (AMB) | payer OTHER, SELFPAY ==
[2025-01-07 08:14] VITALS: BP 120/78; PULSE 68; O2SAT 98
--- NOTE | 2025-01-07 08:14 | AM.OFFWIN_ITS ---
Intake Vital Signs 01/07/25 08:14 Weight 170 lb BP 120/78 Blood Pressure Location Rt brachial Position Sitting Pulse 68 Pulse Source Pulse Oximeter Pulse Oximetry (%) 98 Oxygen Delivery Method Room Air Intake Visit Reasons: EP Blocked RT ear Intake Note: Patient here for right ear blockage after traveling. Patient Tobacco Use Status: Never used Tobacco Allergies No Known Allergies Allergy (Verified 01/07/25 08:22) Do you need a note to return to daycare/school/sports/work: No HPI EP Blocked RT ear HPI Details This is a 54-year-old female patient who presents to the walk-in clinic today with complaint of right ear blockage. She recently traveled to [facility] and had what sounds to be otitis externa, which she received drop for. She did improve, however recently started having the sensation that her right ear is blocked. She has also been seeing green/yellow drainage on Q-tip when cleaning ears. Denies fever/chills. Has what she reports to be chronic allergies. Does not take anything for this. [facility] Medical History Impacted cerumen of both ears Elevated LDL cholesterol level Social History Housing: Condominium Patient Tobacco Use Status: Never used Tobacco e-Cigarette/Vaping Use: Never Used service: No Current occupational status: employed Cognitive needs: No Hearing needs: No Vision needs: Yes Review of Systems Const All systems reviewed & are unremarkable except as noted in HPI and below Physical Exam Vital Signs: Last Vital Signs Pulse 68 01/07/25 08:14 BP 120/78 01/07/25 08:14 Pulse Ox 98 01/07/25 08:14 Oxygen Delivery Method Room Air 01/07/25 08:14 Const General: cooperative, healthy appearing, comfortable and no acute distress HEENT Head: Yes normal to inspection Ears: hearing grossly normal bilaterally, external ears normal, TM normal on the left and Abnormal EAC present erythema on the right and otic discharge purulent on the right General nose exam: Normal external nose present Face and sinus: Yes normal facial exam Mouth: Normal oral and palatal mucosa present Throat: Yes posterior oropharynx normal Neck Neck: Yes no lymphadenopathy Resp Effort & Inspection: normal respiratory effort Skin General skin exam: no rashes or lesions noted Psych Appearance: grossly normal Mental Status: mental status grossly normal Speech and movement: Normal speech and movement present Office Procedures Cerumen Removal From which ear canal was the cerumen removed: right Removal: irrigation Notes: patient tolerated procedure well, no complications and ear canal clear 21027-Uum Irrigation/Lavage Assessment & Plan Assessment & Plan (1) Otitis externa of right ear: Code(s): H60.91 - Unspecified otitis externa, right ear Qualifiers: Otitis externa type: swimmer's ear Chronicity: acute Qualified Code( s): H60.331 - Swimmer's ear, right ear Plan: Irrigation of right ear completed with good effect, large amount of wax and purulent fluid removed. Ear canal then clear, and tympanic membrane visualized and normal. Will start patient on Cipro/Dexa ear drops. We reviewed indications, use of these. She can take ibuprofen/Tylenol if she has any pain or discomfort. She can return to the clinic for further evaluation if she does not improve with treatment. She verbalizes understanding and agrees to plan. Medications: New ciprofloxacin-dexamethasone 0.3-0.1 % Apply 4 drop into right ear twice a day for 7 days 4 drps otic (ears) BID 7 days 7.5 mL 0RF H60.331 - Swimmer's ear, right ear Coding Level of Care Code Est Pt Level 4 (76990) Diagnoses Acute swimmer's ear of right side H60.331 Otitis externa type: swimmer's ear Chronicity: acute CPT Codes Office Procedure - CPT: 11238-Cki Irrigation/Lavage ([id number])
== END 2025-01-07 09:00 | disposition home or self-care (01) ==
PROVIDERS: PCP Internal Medicine; Visit Provider Nurse Practitioner Family
DX: H60.331 Swimmer's ear, right ear (principal)

== ENCOUNTER → 2025-01-07 08:04 | Outpatient (BNVA) | payer OTHER, SELFPAY | PROVIDERS: PCP Internal Medicine | DX: H60.331 Swimmer's ear, right ear (principal) | CPT/HCPCS: 69209 ==

== ENCOUNTER 2025-01-29 08:19 | Outpatient (REF) | payer OTHER, SELFPAY ==
--- NOTE | ~2025-01-29 | MM_ITS ---
EXAMINATION: MM SCREENING DIGITAL BREAST TOMOSYNTHESIS, BILATERAL CLINICAL INFORMATION: Screening. Asymptomatic. COMPARISON: Mammography: Comparison is made with available priors TECHNIQUE: Digital breast mammography with tomosynthesis is performed in both the craniocaudal and mediolateral oblique views along with computer-aided detection (CAD). FINDINGS: The breasts are heterogeneously dense, which may obscure small masses (ACR BI-RADS breast composition Category c). There are no significant masses, abnormal calcifications, or other abnormalities. MM/MM tomosynthesis screening BI IMPRESSION: No mammographic evidence of malignancy. ASSESSMENT: BI-RADS BI-RADS 1 - Negative RECOMMENDATION: Routine annual mammography screening. 1 year F/U This examination should not preclude the clinical evaluation of a suspicious palpable abnormality. This patient's information was entered into a reminder system with a target due date for their next mammogram. Electronically signed by: Jeanette Santamaria DO 02/01/2025 09:34 AM EDT
--- OUTSIDE RECORDS SUMMARY | 2025-01-29 08:21 | XMS_ITS | Data Portability ---
Author Organization [place] - [facility], Allergy Address [address] [address] Care Team Providers Care Semiconductor Engineer Name Role Phone ROLANDO JOHNSON Primary Care Provider [phone] Assessment Encounter Date Assessment Date Assessment LastModified by Organization Details LastModified Time 01/21/2025 01/21/2025 54-year-old female presents for evaluation of right ear infection. Otorrhea and fungal spores removed from the right ear canal. There is a granulation polyp of the medial canal partially obscuring view of anterior tympanic membrane. Remainder of TM is thickened. Left canal without otorrhea or debris. Left TM is intact with an aerated middle ear space. Culture of the right ear was obtained today and medical therapy will be adjusted pending results. Recommended alternating TobraDex and clotrimazole drops twice daily for 2 weeks. Advised dry ear precautions on the right. She will follow-up in 2 weeks for reevaluation. [email or web address] Not available 01/21/2025 11:10:14 Plan of Treatment Reminders Order Date Submit Date Provider Last Modified By Organization Details Last Modified Time Details Appointments Establish ed 15 2024 09:15A M SADIA GAY PA-C Not available Not available Not available Lab fungus, culture, unspecifi ed specimen 2024 025 [email or web address] [facility] (Centralized Electronic Ordering - All Locations), Patient Can Go To The Location Of Their Choice, [id number] 01/28/2025 08:49:31 culture, bacterial 2024 025 [email or web address] [facility] (Centralized Electronic Ordering - All Locations), Patient Can Go To The Location Of Their Choice, 01/28/2025 08:49:31 Referral None recorded. Procedures None recorded. Surgeries None recorded. Imaging None recorded. Medication Orders TobraDex 0.3 %-0.1 % eye drops,ana muelleron 2024 025 [facility]armacy #[id number], [address] [place], [address], 01/21/2025 11:07:02 clotrimaz ole 1 % topical solution 2024 025 [facility] #[id number], [address] [place], [address], 01/21/2025 11:07:24 Patient TargetsNo targets recorded. Patient InstructionsNo instructions recorded. Reason for Referral None Reported. Problems Name Problem SNOMED Code Status Onset Date Resolution Date Notes Provider Name and Address Organization Details Recorded Time Otitis externa 0710722 Active 2024 SADIA GAY PA-C [address] [place] [address], [place], [address], [facility] - [facility] 10:59:16 Granulation of tissue 372033357 Active 2024 SADIA GAY PA-C [address] [place] [address], 9, [facility] [place] 5 10:59:37 Granulation of skin 777011532 Active 2024 SADIA GAY PA-C [address] [place] [address], [address], [facility] - [facility] [place] 5 10:59:48 Otorrhea 89473682 Active 2024 ASDIA GAY PA-C [address] [place] [address], [address], [facility] [place] 11:06:17 Problem Notes None recorded. Medical Equipment None Reported. Medications Name Sig Start Date Stop Date Status Note LastModified by Organization Details LastModified Time cyclobenzaprine 10 mg tablet TAKE 1 TABLET BY MOUTH 3 TIMES A DAY FOR 7 DAYS active Not Available Not Available No t Available amoxicillin 875 mg tablet TAKE 1 TABLET BY MOUTH EVERY 12 HOURS active Not Available Not Available No t Available clotrimazole 1 % topical solution Apply 5 drops to the right ear BID x 14 days 2024 active Not Available Not Available Not Avai lable diclofenac sodium 75 mg tablet,delayed release TAKE 1 TABLET BY MOUTH TWICE A DAY FOR PAIN FOR 10 DAYS active Not Available Not Available No t Available TobraDex 0.3 %-0.1 % eye drops,suspensio n Apply 4 drops to the right ear BID x 14 days 2024 active Not Available Not Available Not Avai lable ciprofloxacin 0.3 %-dexamethasone 0.1 % ear drops,suspensio n INSTILL 4 DROPS INTO RIGHT EAR TWICE DAILY FOR 7 DAYS active Not Available Not Available No t Available Vitals Date Recorded Body weight Body mass index (BMI) Body height Provider Name and Address Organization Details Last Updated DateTime 01/21/2025 05524.52 g 28 kg/m2 165.1 cm Hermelinda Reyes [place] - [facility] 01/21/2025 10:28:58 Social History None recorded. Functional Status None recorded. Mental Status None recorded. Family History Nothing Reported. Medical History No medical history recorded. Gynecological HistoryNo gynecological history recorded. Obstetrics History GPAL:G 0 P 0 0 0 0 Past Encounters Encounter ID Performer Location Encounter Start Date Encounter Closed Date Diagnosis/Indication Diagnosis SNOMED-CT Code Diagnosis ICD10 Code Diagnosis Note [id number] SADIA GAY PA-C [facility] [address] [address] 01/21/2025 10:14:32 01/21/2025 10:54:57 Otitis externa 3235250 H60.311 Granulation of skin 2979 05058 L92.8 Health Concerns Section Related Observation LastModified by Organization Detai ls LastModified Time None Recorded Concern Status LastModified by Organization Details LastModified Time None Recorded Advance Directives Directive None Recorded Payers Encounter Date Sequence Insurance Name Policy Number Policy Guerrero Covered Member ID Guerrero Member ID Guarantor Name 01/21/2025 1 BLUE BENEFIT ADMIN[employer]RAT[employer] OF [facility] [id number] Hilaria Sherwood [id number] Hilaria Sherwood Notes Date Note Type Note Provider Name and Address Organization Details Recorded Time 01/21/2025 text/html 54-year-old mirta smalls presents for evaluation of ear infection. She reports lifelong history of ear infections when she gets a URI, but denies prior otologic surgeries. She has history of allergic rhinitis that is managed with antihistamines as needed. She was previously seen by Dr. Moran who recommended immunotherapy, but patient did not elect to proceed at that time. She reports she was treated with 3-4 courses of Ciprodex eardrops and oral ciprofloxacin. Reports pain improves with antibiotics, but she continues to have muffled hearing, ear blockage, and discolored ear drainage. SADIA GAY PA-C [address] [place] [address], [place], [address], [place] - [facility] 01/21/2025 11:10:53 OBGyn Episode No OBEpisode recorded.
--- OUTSIDE RECORDS SUMMARY | 2025-01-29 08:21 | XMS_ITS ---
Author Organization [facility] [place] Address [address] [place] [address] Care Team Providers Care Armhole Feller Handstitching Machine Name Role Phone Mini PARIS, Sarah Wiley Primary Care Provider Un available BlackLuisitoBeth Unavailable [phone] Allergies No Known Allergies REASON FOR VISIT [...] Problem Acquired hammer toe of right foot (2601520999191998 ) Other hammer toe(s) (acquired), right foot (M20.41) Active confirmed Problem Localized, primary osteoarthritis of the ankle and/or foot (638722945) Arthritis of joint of lesser toe, right (M19.071) Active confirmed Problem Acquired hammer toe of left foot (4066783015532346 ) Other hammer toe(s) (acquired), left foot (M20.42) Active confirmed Problem Localized, primary osteoarthritis of the ankle and/or foot (640731684) Arthritis of joint of lesser toe, left (M19.072) Active confirmed Problem Acquired right hallux valgus (932822150296103) Hallux valgus of right foot (M20.11) Active confirmed Problem Acquired left hallux valgus (339482692420148) Hallux valgus of left foot (M20.12) Active confirmed Problem Acquired hallux valgus (33409509) Acquired hallux interphalangeus of left foot (M20.12) Active confirmed Problem Acquired hallux valgus (87652397) 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) Active confirmed Vital Signs Height 5ft5in in 11/04/2024 Weight 165 lbs 11/04/2024 BMI 27.45 kg/m2 11/04/2024 Blood pressure systolic 120 mm Hg 11/04/19 25 Blood pressure diastolic 70 mm Hg 025 Encounters Encounter Location Date Provider Diagnosis [facility] [address] [address] 11/04/2024 Beth Black Pain in right toe(s) [...] Notes * ALICIALuisitomy LDOB:1970 (54 yo F)Acc No.[id number]:11/04/2024 Progress Notes Patient:?Hilaria SHERWOOD Provider:?Beth Batista DPM :1970???Age:54 Y???Sex:Female D ate:11/04/2024 Address:[address] [place], [place] [id number] Pcp:Qing Muñoz Subjective: * Chief Complaints: * [...] ?Exercise: no. ?Marital status: Single. 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 ???Drug/Alcohol:?AUDIT-C (Standard)?Did you have a drink containing [...] time worn until they are using them time motion analyst and in all activities. They were asked [...] Batista DPM Date:?2024 Generated for Vick freire/Brad/Miki on:?01/29/2025 08:21 AM EDT History and Physical Notes * HPI (History [...] present, erythema at exostosis IPJ b/l R>L FOOTWEAR EVALUATION: shoe gear propertie s exacerbate patients foot/toe deformity DIGITAL DEFORMITIES: Digital [...]
--- OUTSIDE RECORDS SUMMARY | 2025-01-29 08:21 | XMS_ITS ---
Author Organization [facility] Address [address] [place] [address] Care Team Providers Care Oil Expert Name Role Phone Mini PARIS, Sarah Wiley Primary Care Provider Un available Black, Beth Unavailable [phone] REASON FOR VISIT Purchased Pedag Ot Encounters Encounter Location Date Provider Diagnosis [facility] [address] [place] [address] 11/04/2024 Beth Black Plan Of Treatment No Information Progress Notes * Hilaria SHERWOOD LDOB:1970 (54 yo F)Acc No.[id number]:11/04/2024 Patient:?Hilaria SHERWOOD :1970???Age:54 Y???Sex:Female Address:[address] [place] [address] * true * Date:? Generated for Printi tani/Brad/eTransmitting on:?01/29/2025 08:21 AM EDT
== END 2025-01-29 08:20 | disposition home or self-care (01) ==
LOC: HO.MAMMO 08:19
PROVIDERS: PCP Internal Medicine; Visit Provider Internal Medicine
DX: Z12.31 Encounter for screening mammogram for malignant neoplasm of breast (principal)
CPT/HCPCS: 77063; 77067

== ENCOUNTER → 2025-01-29 08:30 | Outpatient (BNV) | payer OTHER, SELFPAY | PROVIDERS: PCP Internal Medicine; Visit Provider Internal Medicine | DX: Z12.31 Encounter for screening mammogram for malignant neoplasm of breast (principal) | CPT/HCPCS: 77063; 77067 ==

== ENCOUNTER 2025-03-10 07:54 | Outpatient (AMB) | payer OTHER, SELFPAY ==
--- OUTSIDE RECORDS SUMMARY | 2025-03-10 07:57 | XMS_ITS | Data Portability ---
Author Organization [place] - [facility], Allergy Address [address] [place] [address] Care Team Providers Care High School Foreign Language Tutor Name Role Phone ROLANDO JOHNSON Primary Care Provider Assessment Encounter Date Assessment Date Assessment LastModified [...] will follow-up in 2 weeks for reevaluation. [email or web address] Not available 01/21/2025 11:10:14 02/02/2025 02/02/2025 54-year-old female presents for follow up of ear infection. Culture positive for Pseudomonas susceptible to tobramycin. The infection has improved. Recommended an additional 2 weeks of Tobradex and dry ear precautions. She will follow up in 3-4 weeks for reevaluation. [email or web address] Not available 02/02/2025 09:43:02 Plan of Treatment Reminders Order Date Submit Date Provider Last Modified By Organization Details Last Modified Time Details Appointments None recorded. Lab fungus, culture, unspecified specimen 2024 025 [email or web address] [facility] (Centralized Electronic Ordering - All Locations), Patient Can Go To The Location Of Their Choice, 12:41:12 culture, bacterial 2024 [email or web address] [facility] (Centralized Electronic Ordering - All Locations), Patient Can Go To The Location Of Their Choice, 12:41:12 Referral None recorded. Procedures None recorded. Surgeries None recorded. Imaging None recorded. Medication Orders TobraDex 0.3 %-0.1 % eye drops,suspe nsion 2024 [facility]/Pharmacy #[id number], [address] [place], [address], 11:07:02 clotrimazol e 1 % topical solution 2024 [facility]/Pharmacy #[id number], [address] [place], [address], 11:07:24 Patient TargetsNo targets recorded. Patient InstructionsNo instructions recorded. Reason for Referral None Reported. Results Created Date Observation Date Name Description Value Unit Range Abnormal Flag Note LastModifiedBy Organization Detail LastModifiedTime 01/22/2001/24/2025 ANAER OBIC AND AEROB IC CULTU RE aerobic culture Final report abnormal Not Available [facility] ([facility]) [address] [facility], [place], [address], 02/01/2025 10:30:23 01/22/20 25 01/24/2025 ANAER OBIC AND AEROB IC CULTU RE result 1 COMMEN T abnormal Pseud omona s aerug inosa Cefta zidim e-emilee bacta m and cefto lozan e-marina obact am may be consi dered for thera py ONLY when multi -drug resis tance (MDR) is demon strat ed to merop enem and other teste d agent s. Heavy growt h Not Available [facility] ([facility]) [address] [facility], [place], [address], 02/01/2025 10:30:23 01/22/20 25 01/24/2025 ANAER OBIC AND AEROB IC CULTU RE antimicrobia l susceptibili ty Commen t S = Susce ptibl e; I = Inter media te; R = Resis tant P = Posit rosa maria; N = Negat rosa maria MICS are expre ssed in micro grams per mL Antib iotic RSLT# 1 RSLT# 2 RSLT# 3 RSLT# 4 Cefep tray S Cefta zidim e S Cefta zidim e/emilee bacta m S Cefto lozan e/marina obact am S Cipro floxa cata I Levof loxac in R Merop enem S Piper acill in/Ta zobac tran S Tobra mycin S Not Available [facility] ([facility]) [address] [place], [address], 02/01/2025 10:30:23 01/22/20 25 01/25/2025 ANAER OBIC AND AEROB IC CULTU RE anaerobic culture Final report Not Available [facility] ([facility]) [address] [place], [address], 02/01/2025 10:30:23 01/22/20 25 01/25/2025 ANAER OBIC AND AEROB IC CULTU RE result 1 COMMEN T No anaer obic growt h in 72 hours . Not Available [facility] ([facility]) [address] [place], [address], 02/01/2025 10:30:23 01/22/20 25 01/24/2025 FUNGU S CULTU RE WITH STAIN fungus stain Final report Not Available [facility] ([facility]) [address] [place], [address], 02/01/2025 10:30:24 01/22/20 25 01/24/2025 FUNGU S CULTU RE WITH STAIN result 1 COMMEN T PAM/C alcof luor prepa ratio n: no fungu s obser lyn. Not Available [facility] ([facility]) [address] [place], [address], 02/01/2025 10:30:24 01/22/20 25 02/01/2025 FUNGU S CULTU RE WITH STAIN fungus (mycology) culture Final report Not Available [facility] ([facility]) [address] [facility], [place], [address], 02/01/2025 10:30:24 01/22/20 25 02/01/2025 FUNGU S CULTU RE WITH STAIN result 1 Commen t Cultu re overg rown with bacte cynthia. Not Available [facility] ([facility]) [address] [facility], [place], [address], 02/01/2025 10:30:24 Result Notes None recorded. Problems Name Problem SNOMED Code Status Onset Date Resolution Date Notes Provider Name and Address Organization Details Recorded Time Otitis externa 5622219 Active 2024 SADIA GAY PA-C [address] [place] [address], [address], [facility] - [facility] [place] 5 10:59:16 Granulation of tissue 061714955 Active 2024 SADIA GAY PA-C [address] [place] [address], [address], [facility] - [facility] [place] 10:59:37 Granulation of skin 862889995 Active 2024 SADIA GAY PA-C [address] [place] [address], [address], [facility] - [facility] [place] 5 10:59:48 Otorrhea 65644439 Active 2024 SADIA GAY PA-C [address] [place] [address], [address], [facility] - [facility] [place] 5 11:06:17 Otorrhagia of right ear 8343746277397 109 Active 2024 SADIA GAY PA-C [address] [place] [address], [address] [place] [address] [facility] 09:41:14 Problem Notes None recorded. Medical Equipment None [...] t Available clotrimazole 1 % topical solution APPLY 5 DROPS TO THE RIGHT EAR TWICE A DAY X 14 DAYS active Not Available Not Available No t Available diclofenac sodium 75 mg tablet,delayed release TAKE 1 TABLET BY MOUTH TWICE A DAY FOR PAIN FOR 10 DAYS active Not Available Not Available No t Available tobramycin 0.3 %-dexamethasone 0.1 % eye drops,suspensio n APPLY 4 DROPS TO THE RIGHT EAR TWICE A DAY X 14 DAYS active Not Available Not Available No t Available ciprofloxacin 0.3 %-dexamethasone 0.1 % ear drops,suspensio n INSTILL 4 DROPS INTO RIGHT EAR TWICE DAILY FOR 7 DAYS active Not Available Not Available No t Available Vitals Date Recorded Body weight Body mass index (BMI) Body height Provider Name and Address Organization Details Last Updated DateTime 01/21/2025 31979.52 g 28 kg/m2 165.1 cm Hermelinda Reyes [facility] 01/21/2025 10:28:58 Date Recorded Body height Body mass index (BMI) Body weight Provider Name and Address Organization Details Last Updated DateTime 02/02/2025 165.1 cm 28 kg/m2 61824.52 g Hermelinda Reyes [facility] 02/02/2025 09:23:27 Social History None recorded. Functional Status None recorded. Mental Status None recorded. Family History Nothing Reported. Medical History No medical history recorded. Gynecological HistoryNo gynecological history recorded. Obstetrics History GPAL:G 0 P 0 0 0 0 Past Encounters Encounter ID Performer Location Encounter Start Date Encounter Closed Date Diagnosis/Indication Diagnosis SNOMED-CT Code Diagnosis ICD10 Code Diagnosis Note [id number] SADIA GAY PA-C [facility] [place] [address] [place] [address] 01/21/2025 10:14:32 01/21/2025 10:54:57 Otitis externa 3114156 H60.311 Granulation of skin 2979 93028 L92.8 [id number] SADIA GAY PA-C [facility] [address] [place] [address] 02/02/2025 09:18:15 02/02/2025 09:38:24 Granulation of skin 441444893 L92.8 Otitis externa 7034274 H 60.311 Otorrhagia of right ear 9835899664 982088 H92.21 Health Concerns Section Related Observation LastModified by Organization Detai ls LastModified Time None Recorded Concern Status LastModified by Organization Details LastModified Time None Recorded Advance Directives Directive None Recorded Payers Insurance Date Sequence Insurance Name Policy Number Policy Guerrero Covered Member ID Guerrero Member ID Guarantor Name 02/01/2025 1 [employer]UE [employer]EFIT [employer]MIN[employer] [place] [id number] Hilaria Sherwood [id number] Hilaria Sherwood Notes Date Note Type [...] and discolored ear drainage. SADIA GAY PA-C [address] [place] [address], [address], [facility] - [facility] 01/21/2025 11:10:53 02/02/2025 text/html 54-year-old mirta smalls presents for follow up of ear infection. Has been alternating Tobradex and Clotrimazole drops with resolution of symptoms. Otorrhea has resolved. Hearing has returned to baseline. Denies otalgia. Previously treated with Ciprodex eardrops and oral ciprofloxacin. SADIA GAY PA-C [address] [place], [place] [address], [place], [address], [facility] - [facility] 02/02/2025 09:44:00 OBGyn Episode No OBEpisode recorded.
--- NOTE | 2025-03-10 07:58 | A.OFFPC_ITS ---
Vital Signs 03/10/25 08:02 Height 5 ft 5 in Weight 175 lb BMI 29.1 BP 110/80 Blood Pressure Location Rt brachial Position Sitting Respiration 16 Pulse 73 Pulse Source Pulse Oximeter Temp 98.2 F Temp Source Oral Pulse Oximetry (%) 100 Oxygen Delivery Method Room Air Intake Visit Reasons: PE - OK PER DR Haley Intake Note: Pt is here today for her PE: Last mammogram 01/29/25, papsmear 12/17/23; Pt never had a colonoscopy Allergies No Known Allergies Allergy (Verified 03/10/25 08:48) Medication List - Last Reconciled 03/10/25 by Sarah Morse MD levonorgestrel (Liletta) intrauterine Tobacco use date assessed: 03/10/25 Dental Screening Dental Screen Date: 03/10/25 Did you have a dental visit in the last 12 months?: Yes Did you have a dental problem in the last 6 months where you did not have access to dental care?: No Was dental information given to patient?: Patient has dentist HPI PE - OK PER DR Haley HPI Details 54-year-old lady here today for her phys ical exam. She has been feeling well except for occasional stress incontinence , already evaluated [place] [facility] at [facility], just wears panty liners, here today for her physical exam. She goes and sees [facility] OBGYN , and is up-to-date with her cervical cancer screening due again for a recheck this year due to a positive HPV result last year . She is up-to-date with her breast cancer screening, but has never had colon cancer screening. She goes to her routine eye exam, and gets stent axis every six-months.. She is due for her tetanus diphtheria booster this year, gets yearly flu shots but normal COVID boosters and has not had her shingles vaccine yet. [facility] Medical History (Updated 03/10/25 @ 08:51 by Sarah Morse MD) Impacted cerumen of both ears Elevated LDL cholesterol level Family History (Updated 03/10/25 @ 08:52 by Sarah Morse MD) Maternal Grandmother Diabetes mellitus Social History Housing: Condominium Patient Tobacco Use Status: Never used Tobacco e-Cigarette/Vaping Use: Never Used service: No Current occupational status: employed Cognitive needs: No Hearing needs: No Vision needs: Yes Female Reproductive History Menstrual control method: progestin IUCD Other: Sees Sharron Arnold [facility] at [facility] Questionnaire PHQ-9 Over the last 2 weeks, how often have you been bothered by any of the following problems? 1. Little interest or pleasure in doing things: not at all 2. Feeling down, depressed, or hopeless: not at all 3. Trouble falling or staying asleep, or sleeping too much: not at all 4. Feeling tired or having little energy: not at all 5. Poor appetite or overeating: several days 6. Feeling bad about yourself - or that you are a failure or have let yourself or your family down: not at all 7. Trouble concentrating on things, such as reading the newspaper or watching television: not at all 8. Moving or speaking so slowly that other people could have noticed. Or the opposite - being so fidgety or restless that you have been moving around a lot more than usual: not at all 9. Thoughts that you would be better off or of hurting yourself in some way: not at all Total score: 1 Depression Screening Interpretation: Negative Depression Screening Done: Yes 61575 - PHQ-9 Billing: Yes Source: Developed by Drs. Jason Mandel, Staci Leone, Ke Perdomo and colleagues, with an educational marybeth from [employer]. Thrive Questionnaire Date Thrive assessed: 03/10/25 I am a: Patient What is your living situation today?: I have a steady place to live Within the past 12 months, did the food you bought not last and you didn't have the money to get more?: Never true Within the past 12 months, did you worry whether your food would run out before you got money to buy more?: Never true Do you have trouble paying for medicines?: No Do you have trouble getting transportation to medical appointments?: No Do you have trouble paying your heating and electricity bill?: No Do you have trouble taking care of your child, family member or friend?: No Do you have trouble with day-to-day activities such as bathing, preparing meals, shopping, managing finances, etc.?: No Are you currently unemployed and looking for a job?: No Are you interested in more education?: No Please select the resources that you would like help with: None Currently or been in a relationship where the following occur: No concerns reported THRIVE Score: 0 AUDIT C Alcohol Use Questionnaire (AUDIT-C) 1. How often do you have a drink containing alcohol?: Monthly or less 2. How many drinks containing alcohol do you have on a typical day when you are drinking?: 3 or 4 3. How often do you have six or more drinks on one occasion?: Less than monthly Total Score: 3 KENDELL-7 AMB Questionnaire KENDELL-7 Date KENDELL - 7 assessed: 03/10/25 Feeling nervous, anxious, or on edge: 1 = Several days Not being able to stop or control worryin = Not at all Worrying too much about different things: 1 = Several days Trouble relaxin = Not at all Being so restless that it is hard to sit still: 0 = Not at all Becoming easily annoyed or irritable: 1 = Several days Feeling afraid as if something awful might happen: 0 = Not at all Total KENDELL-7 score (0-4 normal; 5-9 mild; 10-14 moderate; 15-21 severe): 3 Source: Developed by Drs. Jason Mandel, Staci Leone, Ke Perdomo and colleagues, with an educational marybeth from [employer]. KENDELL-7 Assessment Billing KENDELL-7 Assessment Tool: KENDELL-7 Assessment 91483 Review of Systems Const Denies body aches, Denies difficulty sleeping, Denies fatigue, Denies headache(s), Denies poor appetite, Denies weakness and Denies weight loss Eyes Details: Wears contact lenses, sees. [facility] [place] [facility] Denies vertigo, Denies dizziness and Denies headache(s) Card Denies chest pain, Denies leg edema and Denies lightheadedness Resp Denies cough, Denies hemoptysis and Denies wheezing GI Denies abdominal pain, Denies melena, Denies constipation, Denies diarrhea and Denies vomiting Denies urinary frequency, Denies dysuria and Denies urinary urgency Musc Denies arthralgias, Denies joint swelling, Denies numbness and Denies tingling Skin/Breast Details: No rash or skin lesions seen Neuro Denies Abnormal speech present, Denies behavioral changes, Denies vertigo, Denies dizziness, Denies headache(s), Denies memory loss, Denies numbness, Denies tingling and Denies weakness Psych Denies anxiety, Denies behavioral changes, Denies depression, Denies memory loss and Denies panic attacks Endo Denies fatigue Abrahan/Lymph Denies easy bleeding and Denies easy bruising Aller/Immun Denies wheezing Physical exam (Primary Care) Vital Signs: Last Vital Signs Temp 98.2 F 03/10/25 08:02 Pulse 73 03/10/25 08:02 Resp 16 03/10/25 08:02 BP 110/80 03/10/25 08:02 Pulse Ox 100 03/10/25 08:02 Oxygen Delivery Method Room Air 03/10/25 08:02 BMI result Body Mass Index 29.1 Tobacco/Smoking Status: Tobacco use Status Tobacco use date assessed 03/10/25 03/10/25 08:00 Patient Tobacco Use Status Never used Tobacco 03/10/25 08:00 e-Cigarette/Vaping Use Never Used 03/10/25 08:00 PHQ-9: PHQ-9 Score PHQ-9: Total score 1 03/10/25 08:03 Depression Screening Interpretation: Negative Thrive Assessment: Date of Thrive Assessment Date Thrive assessed 03/10/25 03/10/25 08:03 Currently or been in a relationship where the following occur: No concerns reported Advance Care Planning discussion: Completed/Scanned Date of discussion: 03/10/25 Who was present: Patient Forms completed: Health Care Proxy Time spent: 16-45 minutes Actual minutes spent: 2 Const General: comfortable, no acute distress and alert Nutritional Appearance: overweight Orientation/consciousness: patient oriented x3 Limitations: no limitations HENMT Head: Yes normocephalic Ears: hearing grossly normal bilaterally, TM's normal bilaterally and EAC's normal General nose exam: Normal external nose present and No nasal discharge present Face and sinus: Yes face symmetric Mouth: Normal oral and palatal mucosa present, lip normal, tongue normal and moist mucous membranes Eyes General: appearance normal, both eyes and all related structures Neck Other: Supple, no lymphadenopathy, thyroid gland nonpalpable Resp Effort & Inspection: normal respiratory effort and able to speak in complete sentences Auscultation: clear to auscultation bilaterally Cardio Other: S1-S2 present regular rate and rhythm Bruits: no abdominal aortic bruits GI Inspection: Yes normal to inspection Palpation (GI): No Abdominal aortic bruit present, Soft to palpation, nontender, no guarding and no masses General: Yes no CVA tenderness and Yes deferred (Recently seen by her OBGYN , Dr. Arnold) Back/Spine/Pelvis Back: no CVA tenderness Skin General skin exam: no rashes or lesions noted Neuro General: patient oriented x3, gait normal, tone normal, moves all extremities, no focal motor deficits and CN's II-XI intact bilaterally Speech: No Abnormal speech present Extrem General: Yes full ROM, Yes no joint enlargement, Yes no clubbing, cyanosis or edema, Yes no pedal edema, Yes no calf tenderness and Yes normal gait Psych Appearance: grossly normal and well kempt Mental Status: mental status grossly normal Speech and movement: Normal speech and movement present Affect: normal affect Attitude: cooperative Thought process: Normal thought process present Coding Level of Care Code Est Pt Prev Care 40-64y(14940) Diagnoses Annual visit for general adult medical examination with abnormal findings Z00.01 Encounter for screening for malignant neoplasm of colon Z12.11 Elevated LDL cholesterol level E78.00 Advanced directives, counseling/discussion Z71.89 Additional Codes PHQ-9 - 15793 - PHQ-9 Billing: Yes ([id number]) KENDELL-7 Assessment Billing - KENDELL-7 Assessment Tool: KENDELL-7 Assessment 38194 ([id number]) Vital Signs *Quality* - Advance Care Planning discussion: Completed/Scanned ([id number]) Vital Signs *Quality* - Time spent: 16-45 minutes ([id number]) Assessment & Plan Assessment & Plan (1) Annual visit for general adult medical examination with abnormal findings: Code(s): Z00.01 - Encounter for general adult medical examination with abnormal findings Plan: Will check appropriate labs. Continue with regular dental visit every 6 months and regular eye exams, at least every 2 years. Take adequate calcium in diet and vitamin-D 3 at 2000 IU per cap once a day, in addition to weight-bearing exercises to help maintain good muscle tone and weight control. Instructed to do self-breast exam, and he is up-to-date with yearly mammogram, and cervical cancer screening, sees [facility] OBGYN. Up-to-date with her vaccines, reminded that she is eligible to get her Shingrix vaccination which is 2 doses given 2-6 months apart. Referred to Dr. Yeager for her initial screening colonoscopy. (2) Encounter for screening for malignant neoplasm of colon: Code(s): Z12.11 - Encounter for screening for malignant neoplasm of colon Plan: Referred to Dr. Yeager for her initial colon cancer screening (3) Elevated LDL cholesterol level: Code(s): E78.00 - Pure hypercholesterolemia, unspecified Category: Medical Plan: Fasting lipid panel ordered, patient does weight watchers, has been exercising regularly (4) Advanced directives, counseling/discussion: Code(s): Z71.89 - Other specified counseling Plan: Initiated the conversation about Advanced Directives. Advanced Directives help patients prepare for current and future decisions about their medical treatment and place of care. Discussed with patient that it is a process where a patients current condition and prognosis are reviewed, their wishes for information regarding their illness are elicited, and likely medical dilemmas are presented and options discussed. Healthcare proxy form completed today. The form can be amended as needed, reviewed yearly and make changes as needed Orders: Orders Basic Metabolic Panel Fasting Today E78.00 - Pure hypercholesterolemia, unspecified, Z00.01 - Encounter for general adult medical examination with abnormal findings, Z13.1 - Encounter for screening for diabetes mellitus, Z13.220 - Encounter for screening for lipoid disorders Lipid Panel Today E78.00 - Pure hypercholesterolemia, unspecified, Z00.01 - Encounter for general adult medical examination with abnormal findings, Z13.1 - Encounter for screening for diabetes mellitus, Z13.220 - Encounter for screening for lipoid disorders Aspartate Amino Transferase Today E78.00 - Pure hypercholesterolemia, unspecified, Z00.01 - Encounter for general adult medical examination with abnormal findings, Z13.1 - Encounter for screening for diabetes mellitus, Z13.220 - Encounter for screening for lipoid disorders Vitamin D 25-OH Total Today E78.00 - Pure hypercholesterolemia, unspecified, Z00.01 - Encounter for general adult medical examination with abnormal findings, Z13.1 - Encounter for screening for diabetes mellitus, Z13.220 - Encounter for screening for lipoid disorders Alanine Aminotransferase Today E78.00 - Pure hypercholesterolemia, unspecified, Z00.01 - Encounter for general adult medical examination with abnormal findings, Z13.1 - Encounter for screening for diabetes mellitus, Z13.220 - Encounter for screening for lipoid disorders Referrals Gastroenterology Referral Z12.11 - Encounter for screening for malignant neoplasm of colon
[2025-03-10 08:02] VITALS: BP 110/80; PULSE 73; RESP 16; TEMP 36.8; O2SAT 100; BMI 29.1
== END 2025-03-10 08:47 | disposition home or self-care (01) ==
LOC: HO.HMCC 07:55
PROVIDERS: PCP Internal Medicine; Visit Provider Internal Medicine
DX: Z00.01 Encounter for general adult medical examination with abnormal findings (principal); Z12.11 Encounter for screening for malignant neoplasm of colon; E78.00 Pure hypercholesterolemia, unspecified; Z71.89 Other specified counseling; Z00.00 Encounter for general adult medical examination without abnormal findings

== ENCOUNTER → 2025-03-10 07:54 | Outpatient (BNVA) | payer OTHER, SELFPAY | PROVIDERS: PCP Internal Medicine; Visit Provider Internal Medicine | DX: Z00.01 Encounter for general adult medical examination with abnormal findings (principal); E78.00 Pure hypercholesterolemia, unspecified; Z71.89 Other specified counseling | CPT/HCPCS: 96127 ==

== ENCOUNTER 2025-03-15 08:27 | Outpatient (REF) | payer OTHER, SELFPAY ==
--- NOTE | ~2025-03-15 | XR_ITS ---
EXAMINATION: XR KNEE, LEFT CLINICAL INFORMATION: M25.569 - Pain in unspecified knee COMPARISON: September 18, 2016 TECHNIQUE: Standing bilateral AP, with lateral, and sunrise view left knee. FINDINGS: There is qbyq-[id number]-fpffhatc narrowing of the medial joint space and mild medial subluxation of the distal femur. There are small marginal osteophytes along the medial tibial plateau. Small marginal osteophytes evident at the superior patella. There is no joint effusion. XR/XR knee LT 3V IMPRESSION: [id number] changes of osteoarthritis involving the medial compartment of the left knee. Electronically signed by: Francisco J Hernandez MD 03/15/2025 01:08 PM EDT
--- OUTSIDE RECORDS SUMMARY | 2025-03-16 08:37 | XMS_ITS | Patient Health Record ---
[facility] Address [address] [place] [address] Care Team Providers Care Poiser Balance Name Role Phone Mini PARIS, Sarah Wiley Primary Care Provider Un available BlackBeth Unavailable [phone] Allergies No Known Allergies Reason For Referral [...] Problem Acquired hammer toe of right foot (5005333625673997 ) Other hammer toe(s) (acquired), right foot (M20.41) Active confirmed Problem Acquired hammer toe of left foot (0851157899026084 ) Other hammer toe(s) (acquired), left foot (M20.42) Active confirmed Problem Acquired right hallux valgus (958636364641384) Hallux valgus of right foot (M20.11) Active confirmed Problem Acquired left hallux valgus (703979671525249) Hallux valgus of left foot (M20.12) Active confirmed Problem Acquired hallux valgus (99671242) Acquired hallux interphalangeus of left foot (M20.12) Active confirmed Problem Acquired hallux valgus (05047881) 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) Active confirmed Problem Localized, primary osteoarthritis of the ankle and/or foot (793104433) Arthritis of joint of lesser toe, left (M19.072) Active confirmed Problem Localized, primary osteoarthritis of the ankle and/or foot (541126366) Arthritis of joint of lesser toe, right (M19.071) Active confirmed Vital Signs Blood pressure diastolic 70 mm Hg 11/04/2024 Height 5ft5in in 11/04/2024 Blood pressure systolic 120 mm Hg 11/04/2024 Weight 165 lbs 11/04/2024 BMI 27.45 kg/m2 11/04/2024 Encounters Encounter Location Date [facility] [address] 11/04/2024 Bethmansoor Batista Pain in right toe(s) M79.674 ; Acquired hallux interphalangeus of right foot M20.11 ; Other hammer toe(s) (acquired), right foot M20.41 ; Pain in left toe(s) M79.675 ; Other hammer toe(s) (acquired), left foot M20.42 ; Acquired hallux interphalangeus of left foot M20.12 ; Keratosis L57.0 ; Bunion of left foot M21.612 and Bunion, right M21.[address] [facility] [address] 11/04/2024 Beth Batista Assessments Encounter Date Diagnosis [...] Coverage End Date Blue Benefits [address] [address] [place] [id number] Hilaria Sherwood Self - patient is the insured Medical (General) History Medical History History ICD Code Back pain Knee Pain covid-19 Headaches/Migraines Chicken pox Surgical History Surgery Date(Month/Year) Meniscus repair 2x 1996, 2016
== END 2025-03-15 08:28 | disposition home or self-care (01) ==
LOC: HO.HOSX 08:27
PROVIDERS: Visit Provider Physician Assistant
DX: M25.562 Pain in left knee (principal)
CPT/HCPCS: 73562

== ENCOUNTER 2025-03-15 11:23 | Outpatient (AMB) | payer OTHER, SELFPAY ==
--- NOTE | 2025-03-15 11:35 | MHC.OFFVIS ---
Vital Signs 03/15/25 11:42 Height 5 ft 5 in Weight 175 lb BMI 29.1 Intake Visit Reasons: New Prob - left knee pain Intake Note: Hilaria is a 54 year old female whop resents today for a evaluation of her left knee pain. History of surgery with [facility] in 2016. No recent injury. Patient reports ongoing pain for about for many years. She states that her pain is on the medial aspect of the knee. Patient notices that her pain is worse when she is standing, getting up from a sitting position, going up and down the stairs. She has tried and failed icing and taking Tylenol, NSAIDs. Patient expresses that her pain has gotten better with Ibuprofen. Allergies No Known Allergies Allergy (Verified 03/10/25 08:48) HPI HPI New Prob - left knee pain: Details: Ms. Sherwood is a 54 year old female who presents to the office today for evaluation of left knee pain. Patient does have a history of a knee arthroscopy with Dr. Last in 2016 for partial meniscectomy. Patient reports ongoing pain for many years. She states that her pain is on the medial aspect of the knee. Patient notices that her pain is worse when she is standing, getting up from a sitting position, going up and down the stairs. She has tried and failed icing and taking Tylenol, NSAIDs. Patient expresses that her pain has gotten better with Ibuprofen. She denies any acute trauma. [facility] Medical History (Updated 03/15/25 @ 11:54 by Leticia Hightower PA-C) Impacted cerumen of both ears Elevated LDL cholesterol level Family History (Updated 03/10/25 @ 08:52 by Sarah Morse MD) Maternal Grandmother Diabetes mellitus Social History (Updated 03/15/25 @ 11:41 by Nehal Navarro) [facility] Tobacco Use Status: Never used Tobacco e-Cigarette/Vaping Use: Never Used service: No Current occupational status: employed Current occupation: Medical Billing Cognitive needs: No Hearing needs: No Vision needs: Yes Review of Systems Const All systems reviewed & are unremarkable except as noted in HPI and below Physical Exam Vital Signs: BMI result Body Mass Index 29.1 Const General: cooperative, healthy appearing and no acute distress Resp Effort & Inspection: normal respiratory effort and able to speak in complete sentences Extrem Other: Left knee normal to inspection no ecchymosis, erythema or joint effusion. Full range of motion. No tenderness to palpation medial and lateral joint lines. Negative Milagros's. NVI. Assessment & Plan Assessment & Plan (1) Osteoarthritis of left knee: Code(s): M17.12 - Unilateral primary osteoarthritis, left knee Category: Medical Plan Ms. Sherwood is a 54 year old female who presents to the office today for evaluation of left knee pain. Patient does have a history of a knee arthroscopy with Dr. Last in 2016 for partial meniscectomy. Patient reports ongoing pain for many years. She states that her pain is on the medial aspect of the knee. Patient notices that her pain is worse when she is standing, getting up from a sitting position, going up and down the stairs. She has tried and failed icing and taking Tylenol, NSAIDs. Patient expresses that her pain has gotten better with Ibuprofen. She denies any acute trauma. While in the office today we discussed the role of cortisone injection and knee bracing. At this time the patient is not experiencing much pain and therefore cortisone injection was deferred at this time. The patient was offered a pop wrap knee brace off the shelf while in the office today and fit appropriately. She will use this during activities as needed. She will follow up PRN, sooner if needed. X-rays of the left knee which were obtained while in the office today and were reviewed by me, Leticia Hightower PA-C, arthritic changes. Orders: Orders XR knee LT 3V Today M25.569 - Pain in unspecified knee Coding Level of Care Code New Pt Level 3 (66525) Diagnoses Osteoarthritis of left knee M17.12
[2025-03-15 11:42] VITALS: BMI 29.1
--- OUTSIDE RECORDS SUMMARY | 2025-03-15 13:07 | XMS_ITS | Patient Health Record ---
[facility] Address [address] [place] [address] Care Team Providers Care Senior Shipping Clerk Name Role Phone Mini PARIS, Sarah Wiley Primary Care Provider Un available BlackBeth Unavailable [phone] Allergies No Known Allergies Reason For Referral [...] Problem Acquired hammer toe of right foot (4851425823875958 ) Other hammer toe(s) (acquired), right foot (M20.41) Active confirmed Problem Acquired hammer toe of left foot (0948385626801752 ) Other hammer toe(s) (acquired), left foot (M20.42) Active confirmed Problem Acquired right hallux valgus (740007098353787) Hallux valgus of right foot (M20.11) Active confirmed Problem Acquired left hallux valgus (863923239436354) Hallux valgus of left foot (M20.12) Active confirmed Problem Acquired hallux valgus (33453780) Acquired hallux interphalangeus of left foot (M20.12) Active confirmed Problem Acquired hallux valgus (97386794) 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) Active confirmed Problem Localized, primary osteoarthritis of the ankle and/or foot (830372463) Arthritis of joint of lesser toe, left (M19.072) Active confirmed Problem Localized, primary osteoarthritis of the ankle and/or foot (147728040) Arthritis of joint of lesser toe, right (M19.071) Active confirmed Vital Signs Blood pressure diastolic 70 mm Hg 11/04/2024 Height 5ft5in in 11/04/2024 Blood pressure systolic 120 mm Hg 11/04/2024 Weight 165 lbs 11/04/2024 BMI 27.45 kg/m2 11/04/2024 Encounters Encounter [facility] Date [facility] [address] [facility]/04/2024 Beth[facility]oor Batista Pain in right toe(s) M79.674 ; Acquired hallux interphalangeus of right foot M20.11 ; Other hammer toe(s) (acquired), right foot M20.41 ; Pain in left toe(s) M79.675 ; Other hammer toe(s) (acquired), left foot M20.42 ; Acquired hallux interphalangeus of left foot M20.12 ; Keratosis L57.0 ; Bunion of left foot M21.612 and Bunion, right M21.[address] [facility] [address] 11/04/2024 Beth Batista Assessments Encounter Date Diagnosis [...] Coverage End Date [employer] Benefits [address] [address] [place] [id number] Hilaria Sherwood Self - patient is the insured Medical (General) History Medical History History ICD Code Back pain Knee Pain covid-19 Headaches/Migraines Chicken pox Surgical History Surgery Date(Month/Year) Meniscus repair 2x 1996, 2016
== END 2025-03-15 11:59 | disposition home or self-care (01) ==
LOC: HO.HOS 11:28
PROVIDERS: PCP Internal Medicine; Visit Provider Physician Assistant
DX: M17.12 Unilateral primary osteoarthritis, left knee (principal)
CPT/HCPCS: 99213

== ENCOUNTER → 2025-03-15 11:28 | Outpatient (BNV) | payer OTHER, SELFPAY | PROVIDERS: Visit Provider Radiology Diagnostic Radiology | DX: M17.12 Unilateral primary osteoarthritis, left knee (principal) | CPT/HCPCS: 73562 ==

== ENCOUNTER 2025-06-01 08:47 | Outpatient (AMB) | payer OTHER, SELFPAY ==
[2025-06-01 08:51] VITALS: BP 122/60; PULSE 65; O2SAT 96; BMI 29.5
--- NOTE | 2025-06-01 08:51 | MHC.OFFVIS ---
Vital Signs 06/01/25 08:51 Height 5 ft 5 in Weight 177 lb BMI 29.5 BP 122/60 Blood Pressure Location Lt brachial Position Sitting Pulse 65 Pulse Oximetry (%) 96 Oxygen Delivery Method Room Air Intake Visit Reasons: Colonoscopy Screening Intake Note: Patient new consult for 1st Colonoscopy Screening. Patient denies any GI issues. Highway Patrol Officer Required: No Accompanied by: Self / Same As Patient Allergies No Known Allergies Allergy (Verified 06/01/25 09:05) Medication List - Last Reconciled 06/01/25 by Della Romeo CNP levonorgestrel (Liletta) intrauterine HPI HPI Colonoscopy Screening: Details: Patient is a 54-year-old female with PMH of OA. Referred by PCP for pre colonoscopy screening. This will be the first colonoscopy for the patient. No prior stool-based screenings have been conducted. Patient denies abdominal pain, reflux, constipation, diarrhea, nausea, and vomiting but notes persistent gassiness. The gassiness is not interfering with quality of life, and the patient associates it with dietary changes, including increased consumption of snack foods due to lifestyle factors. The patient acknowledges weight gain of approximately 25 pounds over a period of time attributed to these changes. She is following WW and shares diet generally includes healthy meal prep with fruits and vegetables but has been supplemented with processed foods recently. Patient denies any recent illness with fever, chills, or systemic symptoms and denies any history of reflux or chronic stomach issues. Patient denies: fever/chills, n/v, appetite changes, pyrosis, regurgitation,dysphasia, unintentional wt loss, ab pain or melena/hematochezia. Social hx: -Diet: Predominantly healthy, including fruits and vegetables through meal prep, but increased intake of processed snack foods recently. -Alcohol Use: Consumes alcohol rarely, at most a couple of times per month. Preferred beverages include Shawn?s vodka with seltzer or cider. -Drug Use: Occasional use of marijuana gummies. Denies smoking or other recreational drug use. -Tobacco Use: Non-smoker -Occupation: Works full-time [employer] and part-time with [employer]. - family hx as below -denies personal hx of CA -denies significant cardiopulmonary history -tolerated anesthesia in the past without difficulty. [facility] Medical History (Updated 06/01/25 @ 09:00 by Della Romeo CNP) Colon cancer screening Impacted cerumen of both ears Elevated LDL cholesterol level Surgical History (Updated 06/01/25 @ 08:54 by Pilar Mathur) History of meniscectomy of left knee Family History (Updated 06/01/25 @ 09:09 by Della Romeo CNP) Maternal Grandmother Diabetes mellitus Mother Heart disease, Onset Age: 45 Father Heart disease Nicotine dependence Social History [facility] Patient Tobacco Use Status: Never used Tobacco e-Cigarette/Vaping Use: Never Used service: No Current occupational status: employed Current occupation: Medical [employer] Cognitive needs: No Hearing needs: No Vision needs: Yes Review of Systems Const Reports as per HPI ENT Reports as per HPI Card Reports as per HPI Resp Reports as per HPI GI Reports as per HPI Reports as per HPI Physical Exam Vital Signs: Oxygen Delivery Method Room Air 06/01/25 08:51 Const General: healthy appearing, no acute distress and well developed Nutritional Appearance: average body habitus Orientation/consciousness: patient oriented x3 HEENT Head: Yes normal to inspection, Yes normocephalic and Yes atraumatic Face and sinus: Yes normal facial exam Eyes General: appearance normal, both eyes and all related structures Neck Neck: Yes normal visual inspection Resp Effort & Inspection: normal respiratory effort, able to speak in complete sentences, no tracheal deviation and symmetric chest movement Cardio Jugular venous distension: no JVD Neuro General: patient oriented x3 Gait exam (Neuro): Normal gait present Psych Appearance: grossly normal Mental Status: mental status grossly normal Speech and movement: Normal speech and movement present Affect: normal affect Attitude: cooperative Thought process: Normal thought process present Thought content: Normal thought content present Insight: Good insight present (Psych) Judgement: Good judgement present (Psych) Assessment & Plan Assessment & Plan (1) Colon cancer screening: Code(s): Z12.11 - Encounter for screening for malignant neoplasm of colon Category: Medical Plan: Due for index screening colonoscopy. No alarm features. Medications: -prescriptions for laxative tablets and MiraLax sent to pharmacy; instructions for Gatorade purchase and clear liquid diet given. Patient educated on scheduling process, procedure preparation, including avoiding certain foods and ensuring clear liquid intake Advised on necessity for ride post-procedure due to sedation. Plan Consider intermittent fasting as a lifestyle recommendation for long-term weight and health management. Book recommendation shared with patient. Follow-up after colonoscopy as warranted or sooner if needed Time: I spent a total of 30 minutes on the date of encounter which includes: Preparing to see the patient (reviewed previous documentation, test results and medical history) Performing a medically appropriate exam and/or evaluation Ordering medications, tests, and procedures Documenting clinical information in the health record Medications: New polyethylene glycol 3350 (Miralax) per colonoscopy prep instructions 238 grams PO ONCE 238 grams 0RF bisacodyl (Dulcolax (bisacodyl)) Take four tablets pre colonoscopy instructions 20 mg (4 x 5 mg) PO ONCE 4 tabs 0RF 1 day Coding Level of Care Code New Pt New Pt Level 3 (52756) Patient Type New Diagnoses Colon cancer screening Z12.11
--- OUTSIDE RECORDS SUMMARY | 2025-06-01 09:29 | XMS_ITS | Patient Health Record ---
Author Organization [facility] Address [address] [place] [address] Care Team Providers Care Cake Press Operator Name Role Phone Mini PARIS, Sarah Wiley Primary Care Provider Un available BlackBeth Unavailable [phone] Allergies No Known Allergies Reason For Referral [...] Problem Acquired hammer toe of right foot (6491864753496856 ) Other hammer toe(s) (acquired), right foot (M20.41) Active confirmed Problem Acquired hammer toe of left foot (6173688801829551 ) Other hammer toe(s) (acquired), left foot (M20.42) Active confirmed Problem Hallux valgus of right foot (8120593550) Hallux valgus of right foot (M20.11) Active confirmed Problem Hallux valgus of left foot (5972436381) Hallux valgus of left foot (M20.12) Active confirmed Problem Acquired hallux valgus (74338266) Acquired hallux interphalangeus of left foot (M20.12) Active confirmed Problem Acquired hallux valgus (48058490) 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) Active confirmed Problem Localized, primary osteoarthritis of the ankle and/or foot (331903281) Arthritis of joint of lesser toe, left (M19.072) Active confirmed Problem Localized, primary osteoarthritis of the ankle and/or foot (032629878) Arthritis of joint of lesser toe, right (M19.071) Active confirmed Vital Signs Blood pressure diastolic 70 mm Hg 11/04/2024 Height 5ft5in in 11/04/2024 Blood pressure systolic 120 mm Hg 11/04/2024 Weight 165 lbs 11/04/2024 BMI 27.45 kg/m2 11/04/2024 Encounters Encounter [facility] Date [facility] [address] 11/04/2024 Beth Batista Pain in right toe(s) M79.674 ; Acquired hallux interphalangeus of right foot M20.11 ; Other hammer toe(s) (acquired), right foot M20.41 ; Pain in left toe(s) M79.675 ; Other hammer toe(s) (acquired), left foot M20.42 ; Acquired hallux interphalangeus of left foot M20.12 ; Keratosis L57.0 ; Bunion of left foot M21.612 and Bunion, right M21.[address] [facility] [address] 11/04/2024 Beth Batista Assessments Encounter Date Diagnosis [...] Coverage End Date Blue Benefits [address] [address] [place] [id number] Hilaira Sherwood Self - patient is the insured Medical (General) History Medical History History ICD Code Back pain Knee Pain covid-19 Headaches/Migraines Chicken pox Surgical History Surgery Date(Month/Year) Meniscus repair 2x 1996, 2016
== END 2025-06-01 09:19 | disposition home or self-care (01) ==
LOC: HO.HGI 08:48
PROVIDERS: PCP Internal Medicine; Visit Provider Nurse Practitioner Family
DX: Z01.818 Encounter for other preprocedural examination (principal); Z12.11 Encounter for screening for malignant neoplasm of colon
CPT/HCPCS: S0285

== ENCOUNTER 2025-08-15 09:17 | Day surgery (SDC) | payer OTHER, SELFPAY ==
--- OUTSIDE RECORDS SUMMARY | 2025-08-02 10:50 | XMS_ITS | Data Portability ---
Author Organization [place] [facility], Allergy Address [address] [address] Care Team Providers Care Swimming Pool Maintenance Name Role Phone ROLANDO JOHNSON Primary Care [...] will follow-up in 2 weeks for reevaluation. Not available 01/21/2025 11:10:14 02/02/2025 02/02/2025 54-year-old female presents for follow up of ear infection. Culture positive for Pseudomonas susceptible to tobramycin. The infection has improved. Recommended an additional 2 weeks of Tobradex and dry ear precautions. She will follow up in 3-4 weeks for reevaluation. [email or web address] Not available 02/02/2025 09:43:02 Plan of Treatment Reminders Order Date Submit Date Provider Last Modified By Organization Details Last Modified Time Details Appointments None recorded. Lab fungus, culture, unspecified specimen 2024 025 pramod s28 [facility] (Centralized Electronic Ordering - All Locations), Patient Can Go To The Location Of Their Choice, [address] 12:41:12 culture, bacterial 2024 pramod s2Yomaira [facility] (Centralized Electronic Ordering - All Locations), Patient Can Go To The Location Of Their Choice, [address] 12:41:12 Referral None recorded. Procedures None recorded. Surgeries None recorded. Imaging None recorded. Medication Orders TobraDex 0.3 %-0.1 % eye drops,suspe nsion 2024 [id number] [address] [place], [address], 11:07:02 clotrimazol e 1 % topical solution 2024 [facility] #[id number], [address] [place], [address], 11:07:24 Patient TargetsNo targets recorded. Patient InstructionsNo instructions recorded. Reason for Referral None Reported. Results Created Date Observation Date Name Description Value Unit Range Abnormal Flag Note LastModifiedBy Organization Detail LastModifiedTime 01/22/2001/24/2025 ANAER OBIC AND AEROB IC CULTU RE aerobic culture Final report abnormal Not Available [facility] ([facility]) [address] [facility], [place], [address], 02/01/2025 10:30:23 01/22/20 25 01/24/2025 ANAER OBIC [...] s. Heavy growt h Not Available [facility] ([facility]) [address] [facility], [place], [address], 02/01/2025 10:30:23 01/22/20 25 01/24/2025 ANAER OBIC AND AEROB IC CULTU RE antimicrobia l susceptibili ty Commen t S = Susce ptibl e; I = Inter media te; R = Resis tant P = Posit rosa maira; N = Negat rosa maria MICS are [...] S Tobra mycin S Not Available [facility] ([facility]) [address] [place], [address], 02/01/2025 10:30:23 01/22/20 25 01/25/2025 ANAER OBIC AND AEROB IC CULTU RE anaerobic culture Final report Not Available [facility] ([facility]) [address] [place], [address], 02/01/2025 10:30:23 01/22/20 25 01/25/2025 ANAER OBIC AND AEROB IC CULTU RE result 1 COMMEN T No anaer obic growt h in 72 hours . Not Available [facility] ([facility]) [address] [place], [address], 02/01/2025 10:30:23 01/22/20 25 01/24/2025 FUNGU S CULTU RE WITH STAIN fungus stain Final report Not Available [facility] ([facility]) [address] [place], [address], 02/01/2025 10:30:24 01/22/20 25 01/24/2025 FUNGU S CULTU RE WITH STAIN result 1 COMMEN T PAM/C alcof luor prepa ratio n: no fungu s obser lyn. Not Available [facility] ([facility]) [address] [place], [address], 02/01/2025 10:30:24 01/22/20 25 02/01/2025 FUNGU S CULTU RE WITH STAIN fungus (mycology) culture Final report Not Available [facility] ([facility]) [address] [facility], [place], [address], 02/01/2025 10:30:24 01/22/20 25 02/01/2025 FUNGU S CULTU RE WITH STAIN result 1 Commen t Cultu re overg rown with bacte cynthia. Not Available [facility] ([facility]) [address] [facility], [place], [address], 02/01/2025 10:30:24 Result Notes None recorded. Problems Name Problem SNOMED Code Status Onset Date Resolution Date Notes Provider Name and Address Organization Details Recorded Time Otitis externa 6348193 Active 2024 SADIA GAY PA-C [address] [place] [address], [phone], [facility] 10:59:16 Granulation of tissue 955669458 Active 2024 SADIA GAY PA-C [address] [place] [address], [phone], [facility] 10:59:37 Granulation of skin 830200835 Active 2024 SADIA GAY PA-C [address] [place] [address], [phone], [facility] 10:59:48 Otorrhea 17023661 Active 2024 SADIA GAY PA-C [address] [place] [address], [phone], [facility] 11:06:17 Otorrhagia of right ear 1611066894782 109 Active 2024 SADIA GAY PA-C [address] [place] [address], [phone] [place] [address] [facility] 09:41:14 Problem Notes None recorded. Medical [...] Address Organization Details Last Updated DateTime 01/21/2025 10482.52 g 28 kg/m2 165.1 cm Hermelinda Reyes [facility] 01/21/2025 10:28:58 Date Recorded Body height Body mass index (BMI) Body weight Provider Name and Address Organization Details Last Updated DateTime 02/02/2025 165.1 cm 28 kg/m2 32733.52 g Hermelinda Reyes [facility] 02/02/2025 09:23:27 Social History None recorded. Functional Status None recorded. Mental Status None recorded. Family History Nothing Reported. Medical History No medical history recorded. Gynecological HistoryNo gynecological history recorded. Obstetrics History GPAL:G 0 P 0 0 0 0 Past Encounters Encounter ID Performer Location Encounter Start Date Encounter Closed Date Diagnosis/Indication Diagnosis SNOMED-CT Code Diagnosis ICD10 Code Diagnosis IMO Codes Diagnosis Note [id number] SADIA GAY PA-C [facility] [address] [address] 01/21/2025 10:14:32 01/21/2025 10:54:57 Otitis externa 7836244 H60.311 Granulation of skin 2979 07686 L92.8 [id number] SADIA GAY PA-C [facility] [address] [place] [address] 02/02/2025 09:18:15 02/02/2025 09:38:24 Granulation of skin 341816047 L92.8 Otitis externa 6192535 H 60.311 Otorrhagia of right ear 0623048898 940477 H92.21 Health Concerns Section Related Observation LastModified by Organization Detai ls LastModified Time None Recorded Concern Status LastModified by Organization Details LastModified Time None Recorded Advance Directives Directive None Recorded Payers Insurance Date Sequence Insurance Name Policy Number Policy Guerrero Covered Member ID Guerrero Member ID Guarantor Name 05/20/2025 1 [employer] [place]) [id number] Hilaria Dakota Audet [id number] Hilaria Duncan Audet Notes Date Note Type Note Provider Name and Address Organization Details Recorded Time 01/21/2025 text/html ROS as noted in the HPI 54-year-old female presents for evaluation of ear infection. She [...] and discolored ear drainage. SADIA GAY PA-C [address] [place] [address], [phone], [facility] 01/21/2025 11:10:53 02/02/2025 text/html ROS as noted in the HPI 54-year-old female presents for follow up of ear infection. Has been alternating Tobradex and Clotrimazole drops with resolution of symptoms. Otorrhea has resolved. Hearing has returned to baseline. Denies otalgia. Previously treated with Ciprodex eardrops and oral ciprofloxacin. SADIA GAY PA-C [address] [place] [address], [place], [address], [place] [facility] 02/02/2025 09:44:00 OBGyn Episode No OBEpisode recorded.
--- OUTSIDE RECORDS SUMMARY | 2025-08-02 10:50 | XMS_ITS | Patient Health Record ---
Author [facility] Address [address] [place] [address] Care Team Providers Care Turnaround Planner Name Role Phone Mini PARIS, Sarah Wiley Primary Care Provider Un available BlackBeth Unavailable [phone] Allergies No Known Allergies Reason For Referral [...] Problem Acquired hammer toe of right foot (9773887718079738 ) Other hammer toe(s) (acquired), right foot (M20.41) Active confirmed Problem Acquired hammer toe of left foot (9568145218324949 ) Other hammer toe(s) (acquired), left foot (M20.42) Active confirmed Problem Hallux valgus of right foot (7931978197) Hallux valgus of right foot (M20.11) Active confirmed Problem Hallux valgus of left foot (4442663208) Hallux valgus of left foot (M20.12) Active confirmed Problem Acquired hallux valgus (04622069) Acquired hallux interphalangeus of left foot (M20.12) Active confirmed Problem Acquired hallux valgus (31769014) 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) Active confirmed Problem Localized, primary osteoarthritis of the ankle and/or foot (850691332) Arthritis of joint of lesser toe, left (M19.072) Active confirmed Problem Localized, primary osteoarthritis of the ankle and/or foot (916172011) Arthritis of joint of lesser toe, right (M19.071) Active confirmed Vital Signs Blood pressure diastolic 70 mm Hg 11/04/2024 Height 5ft5in in 11/04/2024 Blood pressure systolic 120 mm Hg 11/04/2024 Weight 165 lbs 11/04/2024 BMI 27.45 kg/m2 11/04/2024 Encounters Encounter Location Date [facility] [address] 11/04/2024 Beth Batista Pain in right toe(s) M79.674 ; Acquired hallux interphalangeus of right foot M20.11 ; Other hammer toe(s) (acquired), right foot M20.41 ; Pain in left toe(s) M79.675 ; Other hammer toe(s) (acquired), left foot M20.42 ; Acquired hallux interphalangeus of left foot M20.12 ; Keratosis L57.0 ; Bunion of left foot M21.612 and Bunion, right M21.611 [facility] [address] 11/04/2024 Beth Batista Assessments Encounter Date Diagnosis [...] Coverage End Date Blue Benefits [address] [address] [place] [id number] Hilaria Sherwood Self - patient is the insured Medical (General) History Medical History History ICD Code Back pain Knee Pain covid-19 Headaches/Migraines Chicken pox Surgical History Surgery Date(Month/Year) Meniscus repair 2x 1996, 2016
[2025-08-11 11:55] VITALS: BMI 29.5
--- NOTE | 2025-08-15 08:25 | MHC.SHP ---
Pre-Procedural Eval Section A - 24 Hr Update-Section A only Date of Service: 08/15/25 The patient is an INPATIENT: No The patient has been examined within 24 hours of the surgical procedure. The History & Physical has been completed within 30 days and I have reviewed it.: No Section B - Complete if H&P > 30 days Chief Complaint: screening Relevant Family History (Specify if Yes): No Relevant Social History: None Present Medications: see Short Stay Collaborative assessment Medical History: Significant History (Impacted cerumen of both ears Elevated LDL cholesterol level) History of Previous Operations: Relevant previous surgery/procedure and date(s) (History of meniscectomy of left knee) Allergies: Allergies Allergy/AdvReac Type Severity Reaction Status Date / Time No Known Allergies Allergy Verified 06/01/25 09:05 Review of Systems Sugical H&P ROS: Negative: Constitution, Cardiovascular, Respiratory and Gastrointestinal Exam Surgical H&P Exam: Normal: Heart, Normal: Lungs, Normal: Extremities and Normal: Abdomen Plan Diagnosis/Plan: Unchanged I have reviewed the history and physical and performed a pertinent physical examination on my patient. No changes have occurred unless specified. Time Spent With Patient Time: Total time managing care of this patient today ____ minutes.
[2025-08-15 09:24] VITALS: BMI 28.5
[2025-08-15 09:35] VITALS: BP 106/58; PULSE 66; RESP 12; TEMP 36.5; O2SAT 97
[2025-08-15] MEDS: Lactated Ringers 1,000 ML 100 ML IVCONT (10:05)
--- NOTE | 2025-08-15 10:07 | P.CONAN_ITS ---
Documented by User: Chen Wyman NP 08/10/25 13:41 HPI - Anesthesia Eval Consult details Narrative: 55yo F for Colonoscopy PMFSH Active Problems Active Problems: All Active Problems Colon cancer screening (Acute) Osteoarthritis of left knee (Acute) Elevated LDL cholesterol level (Acute) Past Medical History Medical History (Updated 06/01/25 @ 09:00 by Della Romeo CNP) Colon cancer screening Impacted cerumen of both ears Elevated LDL cholesterol level Family History Family History (Updated 06/01/25 @ 09:09 by Della Romeo CNP) Maternal Grandmother Diabetes mellitus Mother Heart disease, Onset Age: 45 Father Heart disease Nicotine dependence Surgical History Surgical History (Updated 06/01/25 @ 08:54 by Pilar Mathur) History of meniscectomy of left knee Social History Social History [facility]: [facility] Are you a primary home health care respiratory therapist to a significant other at home: No Do you presently have visiting nurse or other home services: No Patient Tobacco Use Status: Never used Tobacco e-Cigarette/Vaping Use: Never Used Second Hand Smoke Exposure: No Use of substances other than those prescribed or required for medical reasons: No Have you been hit, kicked, punched, or otherwise hurt by someone within the past year? 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 needs: No Hearing needs: No Vision needs: Yes Meds Allergies Allergy/AdvReac Type Severity Reaction Status Date / Time No Known Allergies Allergy Verified 06/01/25 09:05 Home Medications ?Medication ?Instructions ?Recorded ?Confirmed ?Last Taken ?Type levonorgestrel 20.4 mcg/24 hr (up intrauterine 02/23/ 2 06/01/25 Unknown History to 8 yrs) 52 mg intrauterine device (Liletta) Assessment and Plan Assessment Anesthesia Assessment: Chart Reviewed Documented by User: Serena Perez, 08/15/25 10:09 [facility], [facility] Past Medical History Medical History (Updated 06/01/25 @ 09:00 by Della Romeo CNP) Colon cancer screening Impacted cerumen of both ears Elevated LDL cholesterol level Family History Family History (Updated 06/01/25 @ 09:09 by Della Romeo CNP) Maternal Grandmother Diabetes mellitus Mother Heart disease, Onset Age: 45 Father Heart disease Nicotine dependence Family history of problems with anesthesia: No Surgical History Surgical History (Updated 06/01/25 @ 08:54 by Pilar Mathur) History of meniscectomy of left knee History of Problems with Anesthesia: No Social History Social History [facility]: [facility] Are you a primary home health care respiratory therapist to a significant other at home: No Do you presently have visiting nurse or other home services: No Patient Tobacco Use Status: Never used Tobacco e-Cigarette/Vaping Use: Never Used Second Hand Smoke Exposure: No Use of substances other than those prescribed or required for medical reasons: No Have you been hit, kicked, punched, or otherwise hurt by someone within the past year? 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 needs: No Hearing needs: No Vision needs: Yes Meds Allergies Allergy/AdvReac Type Severity Reaction Status Date / Time No Known Allergies Allergy Verified 06/01/25 09:05 Home Medications ?Medication ?Instructions ?Recorded ?Confirmed ?Last Taken ?Type levonorgestrel 20.4 mcg/24 hr (up intrauterine 2 06/01/25 Unknown History to 8 yrs) 52 mg intrauterine device (Liletta) Exam Exam Date and Time: 08/15/25954 Height,Weight and Vital Signs: Height 5 ft 5 in Weight 77.7 kg Vital Signs Temperature 97.7 F 08/15/25 09:35 Pulse Rate 66 08/15/25 09:35 Respiratory Rate 12 08/15/25 09:35 Blood Pressure 106/58 L 08/15/25 09:35 Pulse Oximetry 97 08/15/25 09:35 Oxygen Delivery Method Room Air 08/15/25 09:35 Temperature 97.7 F 08/15/25 09:35 Pulse Rate 66 08/15/25 09:35 Respiratory Rate 12 08/15/25 09:35 Blood Pressure 106/58 L 08/15/25 09:35 Pulse Oximetry 97 08/15/25 09:35 Oxygen Delivery Method Room Air 08/15/25 09:35 Airway Mallampati Class: I TM Dist: >3cm Neck ROM: Full Loose/Missing/Broken Teeth: No (patient denies any loose or broken teeth) Heart: S1S2 Lungs: CTAB Assessment and Plan Assessment Anesthesia Assessment: Anesthesia Plan Discussed and Chart Reviewed Final Anesthetic Review Family History of Problems with Anesthesia: No History of Problems with Anesthesia: No NPO: Yes ASA Class: I Final Preanesthetic Review: No Changes in Pt Med Stat, Meds/Allgs Chart Reviewed, Consent Obtained/Reviewed and Anes Risks/Benef Reviewed Patient Risk: Low Procedure Risk: Low Anesthetic Plan Anesthetic Plan: MAC: and Agree w/ Assess. and Plan Disposition: Standard PACU
[2025-08-15 11:23] VITALS: BP 102/59; PULSE 65; RESP 16; TEMP 36.1; O2SAT 98
--- NOTE | 2025-08-15 11:27 | P.OPN-COLO_ITS ---
Colonoscopy Operative Note Operative Note Date of Service: 08/15/25 Narrative: COLONOSCOPY TILL CECUM WITH SNARE POLYPECTOMY, SUBMUCOSAL INJECTION AND HEMOCLIP PLACEMENT. Pre-op diagnosis: Colon cancer screening (First colon), family history of colon cancer. Post-op diagnosis:? Colon polyps, Diverticulosis, hemorrhoids Endoscopist:? Ji Yeager MD Anesthesia:?MAC Consent: Indications for the procedure and potential complications of bleeding, perforation, reaction to medications and missed diagnosis were discussed with the patient and informed consent was obtained. Instrument: Olympus PCF H 190 L variable stiffness pediatric colonoscope Monitoring: Vital signs and clinical assessment, intermittent blood pressure monitoring, continuous EKG monitoring, Pulse oximetry and Carbon Dioxide monitoring were done throughout the procedure. Please see anesthesia flowsheet. Colon withdrawl time was 25 minutes. Procedure: The patient was placed in the left lateral decubitis position and pre-procedure medications were administered. After a digital rectal examination of the ano-rectum, the video colonoscope was inserted into the rectum and advanced through the colon to the cecum. The colonoscope was slowly withdrawn in a retrograde panoramic fashion and the colon mucosa was carefully examined including a retroflexed view of the rectum. Findings and interventions are described below. Procedure Difficulty: without difficulty Findings: Terminal Ileum: Not evaluated Cecum: A 12-15 mm flat polyp - polyp was raised with 3 cc of Eleview and removed with a stiff hot snare. Polypectomy site was closed with 1 hemoclip. A 12-15 mm flat polyp - polyp was raised with 3 cc of Eleview and removed with a stiff hot snare. Polypectomy site was closed with 1 hemoclip. Ascending Colon: Normal Transverse Colon: A 5-6 mm sessile polyp at 60 cms - removed with a cold biopsy. Moderate diverticulosis Descending Colon: Moderate diverticulosis Sigmoid Colon: Severe diverticulosis with luminal narrowing. Rectum: A 2.5 cms peduculated polyp (on a short pedicle) at 10 cms - removed with a hot snare. Polypectomy site was closed with 1 hemoclip and marked with Oly ink. Ano-rectum: Moderate internal hemorrhoids Colon preparation: Good after some irrigation. [place] Bowel Preparation Scale Right colon; 2 Transverse colon: 2 Left colon; 2 (0 = Unprepared colon segment with mucosa not seen due to solid stool that cannot be cleared. 1 = Portion of mucosa of the colon segment seen, but other areas of the colon segment not well seen due to staining, residual stool and/or opaque liquid. 2 = Minor amount of residual staining, small fragments of stool and/or opaque liquid, but mucosa of colon segment seen well. 3 = Entire mucosa of colon segment seen well with no residual staining, small fragments of stool or opaque liquid) Impression and Post Procedure Diagnosis: Colonoscopy Findings: Four small to medium sized polyps were removed Moderate diverticulosis seen in the left and transverse colon Moderate hemorrhoids on retroflexed exam. Plan: I will send a letter with biopsy results. Repeat Colonoscopy in 3-5 years if polyps are adenomatous and 10 year if polyps are hyperplastic. Above findings were reviewed with the patient and relevant handouts were given and the discharge area. BIOPSIES SHOWED: A. Cecum, polypectomies: - Fragments of tubular adenoma; negative for high-grade dysplasia or carcinoma. - Sessile serrated lesion/polyp; negative for cytologic dysplasia. B. Colon, transverse, polypectomy: Clinically polypoid colonic mucosa within normal limits. C. Rectum, polypectomy: Tubular adenoma; negative for high-grade dysplasia or carcinoma. Letter sent with biopsy results. Patient is placed on the colonoscopy recall list for repeat colonoscopy in 3 years.
[2025-08-15 11:34] VITALS: BP 110/62; PULSE 54; RESP 816; TEMP 36.6; O2SAT 100
== END 2025-08-15 11:58 | disposition home or self-care (01) ==
PROVIDERS: Anesthesiology; PCP Internal Medicine; Visit Provider Internal Medicine Gastroenterology
PROC: 0DJD8ZZ Inspection of Lower Intestinal Tract, Via Natural or Artificial Opening Endoscopic (ICD-10-PCS; CPT 45378; principal; 2025-08-15 11:20)
DX: Z12.11 Encounter for screening for malignant neoplasm of colon (principal); K64.8 Other hemorrhoids; K57.30 Diverticulosis of large intestine without perforation or abscess without bleeding; D12.7 Benign neoplasm of rectosigmoid junction; D12.0 Benign neoplasm of cecum
CPT/HCPCS: 45385; 45381; 36415; 84702; 88305; J2704

== ENCOUNTER → 2025-08-15 09:17 | Outpatient (BNV) | payer OTHER, SELFPAY | PROVIDERS: PCP Internal Medicine; Visit Provider Internal Medicine Gastroenterology | DX: Z12.11 Encounter for screening for malignant neoplasm of colon (principal); D12.0 Benign neoplasm of cecum; D12.8 Benign neoplasm of rectum; D12.3 Benign neoplasm of transverse colon; K64.8 Other hemorrhoids; K57.90 Diverticulosis of intestine, part unspecified, without perforation or abscess without bleeding | CPT/HCPCS: 45380; 45381; 45385 ==